=== PATIENT | male | born 1935 | race Caucasian/White ===

== ENCOUNTER 2022-03-15 09:10 | Observation (INO) | payer MEDICARE, SELFPAY ==
[2022-03-15] VITALS (10 sets, daily range): BP systolic 133–144; BP diastolic 53–95; PULSE 60–119; RESP 16–18; TEMP 36.3–37.1; O2SAT 96–99; BMI 26.9; BMI 26.4
--- NOTE | 2022-03-15 09:19 | EKG12_ITS ---
Test Reason : AFIB Blood Pressure : / mmHG Vent. Rate : 144 BPM Atrial Rate : 150 BPM P-R Int : 000 ms QRS Dur : 122 ms QT Int : 328 ms P-R-T Axes : 000 -26 094 degrees QTc Int : 507 ms Atrial fibrillation with premature ventricular or aberrantly conducted complexes Incomplete left bundle branch block Abnormal ECG Confirmed by CHAU CORTEZ, ADIA ([id number]), editorial director NAJMA MARTINEZ ([id number]) on 03/19/2022 10:12:59 AM Referred By: MATT Confirmed By:ADIA RITCHIE MD
--- NOTE | 2022-03-15 09:23 | NURSING ---
NO OLD EKGS
--- NOTE | 2022-03-15 09:27 | EDS_ITS ---
HPI History of Present Illness Chief Complaint: Palpitations Informant: patient Onset/Context/Timing Onset: Today Timing: Continuous Current Severity: Mild Maximum Severity: Mild Worsened By: Nothing Relieved By: Nothing Associated Symptoms: Negative for Nausea, Vomiting, Diaphoresis, Dyspnea, Cough, Fever or Lightheadedness Narrative Narrative: 86-year-old male history of hypertension and prior prostate cancer. Today Laisha had a cataract surgery at [facility]. Preop exam they found he was in A. fib RVR. He has no cardiac history no history of any dysrhythmia. He did not even realize he was in it. He denies any recent chest pain or shortness of breath. They sent him to the emergency department to be evaluated. He has no history of cardiac disease that he is aware of. Prior Similar Symptoms: No Recent Illness/Hospitalization: No CVD Risk Factors: Positive for Hypertension and Hypercholesterolemia; Negative for Diabetes PE Risk Factors: Negative for Recent Travel/Surgery, Recent Immobilization, Prior DVT or PE, Cancer or OCP + Smoking + >/=35 TAD Risk Factors: Negative for Marfan's Syndrome [facility] Medical History BPH (benign prostatic hyperplasia) History of prostate cancer Hypertension Home Medications hydrochlorothiazide 12.5 mg capsule 1 cap PO DAILY 03/15/22 [History Last Taken Unknown] lisinopril 5 mg tablet 1 tab PO DAILY 03/15/22 [History Last Taken Unknown] losartan 25 mg tablet 1 tab PO DAILY 03/15/22 [History Last Taken Unknown] tamsulosin 0.4 mg capsule 1 cap PO QHS 03/15/22 [History Last Taken Unknown] Allergy/AdvReac Type Severity Reaction Status Date / Time No Known Allergies Allergy Verified 03/15/22 09:12 Social History Smoking Status: Never smoker ROS ROS ED ROS Narrative Denies recent illness. Review of Systems ROS Unobtainable: Denies due to encephalopathy Constitutional Constitutional ED: Denies chills Eyes Eyes: Denies none ENT ENT ED: Denies ear pain Cardiovascular Cardiovascular: Reports as per HPI, palpitations and racing heartbeat Respiratory/Chest Respiratory/Chest: Denies cough Gastrointestinal Gastrointestinal: Denies abdominal pain Genitourinary Genitourinary ED: Denies dysuria Musculoskeletal Musculoskeletal: Denies arthralgias Integumentary Denies abscess Neurologic Neurologic: Denies headache(s) Psychiatric Psychiatric: Denies anxiety Endocrine Endocrinology: Denies cold intolerance Hematologic/Lymphatic Hematologic/Lymphatic: Denies easy bleeding Allergic/Immunologic Allergic/Immunologic ED: Denies mouth swelling EXAM Physical Exam Narrative Exam Narrative: 86-year-old male vital signs stable except for his heart rate is between 100- 150. No distress. Pulse ox 99% on room air no signs hypoxia. H EENT exam unremarkable. Neck nontender. No JVD. No lymphadenopathy. Lungs clear to auscultation bilaterally. Heart irregularly irregular rate about 148. No murmur. Chest wall nontender. Abdomen soft nontender. Moving all 4 extremities. Calves are nontender without edema or cords. Neurologically is awake and alert. Const Vital Signs: 03/15/22 09:11 03/15/22 09:19 Temperature 97.5 F L Temperature Source Temporal Pulse Rate 60 Respiratory Rate 16 Blood Pressure 143/95 H Blood Pressure Mean 111 Pulse Ox 99 Oxygen Delivery Method Room Air Room Air Positive well nourished; Negative for obese, cachectic, contractures or unkempt General Appearance ED: Negative for unkempt, cachectic or contractures Nutritional Appearance: Negative for cachectic or obese HEENT Reports moist mucous membranes normocephalic and atraumatic; Negative for trauma or tenderness Eyes PERRL and EOMs intact bilaterally General Eye ED: Negative for pale conjunctiva or scleral icterus Neck no lymphadenopathy, supple and no JVD General: Negative for tenderness Chest Wall inspection of chest normal and palpation of chest normal Resp normal respiratory effort and clear to auscultation bilaterally Effort and Inspection: respiratory distress; Negative for pain with movement Auscultation: Negative for rales, rhonchi or wheezes Cardio Rate: tachycardic Rhythm: abnormal rhythm GI normal to inspection, nondistended, normoactive bowel sounds, soft to palpation, non-tender, non-distended and no masses; Negative for hepatosplenomegaly Back/Spine no CVA tenderness Extremity normal to inspection General Extremety ED: Negative for edema General Extremity: Negative for edema Neuro oriented x3 and CN's II-XII intact bilaterally Sensorium / Orientation: awake, alert, oriented to person, oriented to place and oriented to time; Negative for confused, lethargic or stuporous Motor Exam: strength 5/5 throughout Psych mental status grossly normal Appearance: Negative for unkempt Attitude: No agitated Mood & Affect: Negative for depressed or anxious Skin no rashes or lesions noted and no wounds General Skin Exam: Negative for jaundice Rashes: No rashes noted Trauma: Negative for abrasion MDM MDM MDM Narrative Medical decision making narrative: 86-year-old male new onset A. fib RVR. Treated with IV Cardizem. Cardiac work- up pending. Most likely will need to be admitted. Repeat exam patient's heart rate is between 1920. Is intermittently in sinus rhythm and other times A. fib or flutter and other times during multiple and frequent PVCs. He is doing well. Resting comfortable. Have spoken to the hospitalist on admission. Lab Data Attestation: I reviewed the patient's lab results. Lab results narrative: CBC shows a white count of 6. H&H of 13.8 and 42. Chemistry is unremarkable except at 6. Normal BUN and creatinine. Troponin 65. TSH normal at 2.7. Labs: Laboratory Results - last 24 hr 03/15/22 03/15/22 09:30 09:30 WBC 6.4 RBC 4.98 Hgb 13.8 Hct 42.6 MCV 85.5 MCH 27.7 MCHC 32.4 RDW Std Deviation 39.2 RDW Coeff of Dc 12.7 Plt Count 283 MPV 9.9 Immature Gran % (Auto) 0.300 Neut % (Auto) 60.7 Lymph % (Auto) 24.2 [place] % (Auto) 11.4 H Eos % (Auto) 2.5 Baso % (Auto) 0.9 Absolute Neuts (auto) 3.9 Absolute Lymphs (auto) 1.55 Nucleated RBC % 0 Sodium 138 Potassium 3.7 Chloride 103 Carbon Dioxide 29.0 Anion Gap 6 BUN 16 Creatinine 0.87 Estim Creat Clear Calc 59.09 Est GFR (MDRD) Af Amer 107 Est GFR (MDRD) Non-Af 89 BUN/Creatinine Ratio 18.4 Glucose 109 H Calcium 9.5 Troponin I High Sens 65 TSH 2.76 Radiography Chest X-Ray - ED: 1 View, Read by ED Physician, Heart, Lungs, Mediastinum, Bony Structures, No Acute Disease and Chronic Changes Diagnostic Testing: Chest x-ray, portable, single view interpreted by myself shows no acute abnormality. Normal cardiac silhouette mediastinum. No congestive heart failure. No effusions. Rhythm Strip Rhythm Strip: A-fib Rate: 144 Ectopy: PVC(s) EKG Initial EKG: Attestation: I personally reviewed and interpreted this EKG as follows: Interpretation: No Acute Injury Pattern and Atrial Fibrillation Comments: A. fib RVR rate of 144. PVCs. Discharge Plan Dx/Rx/DC Orders Clinical Impression: Atrial fibrillation with RVR, History of hypertension Disposition Disposition: Acute Care Hospital [facility]
[2022-03-15] MEDS: Aspirin 81 MG TAB.CHEW 324 MG PO (09:30)
[2022-03-15] MEDS: dilTIAZem 25 MG/5 ML Vial 20 MG IV BOLUS (09:31)
[2022-03-15 09:45] LABS: Absolute Lymphocyte Count 1.55 X10^3/uL (0.83-4.51); Absolute Neutrophil Count 3.9 X10^3/uL (2.0-7.7); Basophil# 0.06 X10^3/uL; Basophil% 0.9 % (0-1); Eosinophil# 0.16 X10^3/uL; Eosinophils% 2.5 % (0-5); Hematocrit 42.6 % (40-54); Hemoglobin 13.8 g/dL (13.0-16.5); Lymphocyte # 1.55 X10^3/ul (0.83-4.51); Lymphocyte % 24.2 % (19-41); Mean Corp Hgb Conc 32.4 g/dL (32-36); Mean Corpuscular Hgb 27.7 pg (27.0-32.0); Mean Corpuscular Volume 85.5 fL (80-94); Mean Platelet Vol. 9.9 fl (6.2-12.0); Monocyte# 0.73 X10^3/uL; Monocyte% 11.4 % (0-10); NRBC Flagged by Analyzer 0 % (0-5); Neutrophil # 3.88 X10^3/uL (2.7-7.7); Neutrophil % 60.7 % (47-70); Platelet Count 283 K/mm3 (150-450); RBC Distribution Width CV 12.7 % (11.6-14.6); RBC Distribution Width SD 39.2 fl (35.1-43.9); Red Blood Count 4.98 M/mm3 (4.6-6.2); White Blood Count 6.4 K/mm3 (4.4-11.0)
--- NOTE | 2022-03-15 09:52 | RAD_ITS ---
STUDY: X-RAY CHEST REASON FOR EXAM: Male, 86 years old. Chest pain . Palpitations. TECHNIQUE: Single AP portable view of the chest. COMPARISON: None. FINDINGS: EKG electrodes are seen. Elevation of the right hemidiaphragm. Mild degree of increased markings at the right lung base suggestive of atelectasis. There is no demonstrated pleural abnormality. There is borderline cardiomegaly. Normal mediastinum and ochoa. Normal visualized pulmonary arteries. Normal visualized aortic arch and descending thoracic aorta. There are diffuse degenerative changes of the visualized thoracic spine. Normal visualized ribs, clavicles, and shoulders. There is no demonstrated abnormality of the visualized soft tissue structures of the upper abdomen. RAD/Chest 1 View (Portable) IMPRESSION: Elevation of the right hemidiaphragm. Mild degree of increased markings at the right lung base suggestive of atelectasis. Electronically Signed: Jeremiah Todd MD at 10:47 EDT ,
[2022-03-15 10:08] LABS: Anion Gap 6 (5-15); BUN 16 mg/dL (7-18); BUN/Creat Ratio 18.4 RATIO (10-20); Calcium,Total 9.5 mg/dL (8.5-10.1); Chloride 103 mmol/L (98-107); Creatinine, Serum 0.87 mg/dL (0.70-1.30); EST Glomerular Filtration Rate 89 mL/min (>60); Est Glom Filt Rate - Afr Amer 107 mL/min (>60); Estimated Creatinine Clearance 59.09 ml/min; Glucose 109 mg/dL (74-106); Potassium 3.7 mmol/L (3.5-5.1); Sodium Level 138 mmol/L (136-145); Thyroid Stim Hormone (TSH) 2.76 uIU/mL (0.358-3.74); Troponin-I HS 65 pg/mL (3.0-78.0)
--- NOTE | 2022-03-15 10:24 | NURSING ---
DR BILLIE PARSON
--- NOTE | 2022-03-15 10:35 | NURSING ---
PENNY WISE NEW ONSET AFIB RVR
--- NOTE | 2022-03-15 10:53 | ECHOD_ITS ---
Reason For Study: ATRIAL FIB-FLUTTER Procedure This was a 2D Doppler, Color Flow transthoracic echocardiogram. The exam was of adequate technical quality. Exam performed portable in patient room. Left Ventricle Mildly dilated left ventricle. Sigmoid septum. Moderate segmental systolic dysfunction (see wall motion). The estimated ejection fraction is 30 %. Unable to assess diastolic dysfunction. Anterio- Basal: Hypokinetic. Lateral-Basal: Hypokinetic. Posterior-Basal: Akinetic. Infero-Basal: Akinetic. Mid-Anterior : Hypokinetic. Mid-Lateral : Hypokinetic. Mid-Posterior: Akinetic. Mid-Inferior: Akinetic. Mid-inferoseptal : Hypokinetic. Mid-anteroseptal : Hypokinetic. Etters : Hypokinetic. Right Ventricle Normal RV size. Normal systolic function. Atria The left atrium is mildly enlarged. Normal right atrium. No doppler evidence for ASD. Mitral Valve There is mild mitral annular calcification. Mild focal mitral valve calcification of the anterior leaflet. Moderate (2+) mitral valve insufficiency. Tricuspid Valve Normal tricuspid valve. Mild tricuspid valve insufficiency. Right ventricular systolic pressure estimated to be 21 mmHg. Aortic Valve Trisinus/trileaflet aortic valve. Mild focal aortic valve calcification. Mild (1+) aortic valve insufficiency. Pulmonic Valve The pulmonic valve is not well visualized. Trivial pulmonic valve insufficiency. Great Vessels Normal sized aortic root. Pericardium/Pleural No pericardial effusion. MMode/2D Measurements & Calculations LVIDd: 5.5 cm IVSd: 1.5 cm Ao root diam: 3.3 cm LVIDs: 5.0 cm LVPWd: 1.0 cm RVDd: 3.7 cm FS: 8.0 % LAV(MOD-bp): 72.4 ml LVAd ap4: 44.3 cm2 SV(MOD-sp4): 49.3 ml LAV(MOD-bp) Indexed: 38.2 ml/m2 LVLd ap4: 9.2 cm LAV(MOD-sp2): 71.3 ml EDV(MOD-sp4): 174.5 ml LAV(MOD-sp4): 70.3 ml EDV(sp4-el): 181.8 ml LVAs ap4: 36.1 cm2 LVLs ap4: 8.6 cm ESV(MOD-sp4): 125.2 ml ESV(sp4-el): 129.7 ml EF(MOD-sp4): 28.3 % EF(sp4-el): 28.7 % SV(sp4-el): 52.1 ml LA A4 area: 23.2 cm2 LA dimension(2D): 4.5 cm RA A4 area: 15.6 cm2 Doppler Measurements & Calculations MV E max lena: 93.1 cm/sec Ao V2 max: 125.7 cm/sec AI max lena: 383.6 cm/sec Ao max P.4 mmHg AI max P.9 mmHg AI dec slope: 239.6 cm/sec2 AI P1/2t: 468.9 msec LV V1 max: 94.7 cm/sec PA V2 max: 69.7 cm/sec TR max lena: 214.0 cm/sec LV V1 max P.6 mmHg TR max P.3 mmHg ECHO/Echo Complete Interpretation Summary Mildly dilated left ventricle. Moderate segmental systolic dysfunction (see wall motion). The estimated ejection fraction is 30 %. Sigmoid septum. The left atrium is mildly enlarged. There is mild mitral annular calcification. Moderate (2+) mitral valve insufficiency. Mild tricuspid valve insufficiency. Mild focal aortic valve calcification. Mild (1+) aortic valve insufficiency. Trivial pulmonic valve insufficiency. Unable to assess diastolic dysfunction. Ordering Physician: Isidro Coyne Referring Physician: ISIDRO MOREL Performed By: Sima Dyson RDCS
[2022-03-15] MEDS: Metoprolol Tartrate 50 MG Tablet PO (11:56)
[2022-03-15] MEDS: APIXABAN 5 MG TABLET PO ×2 (12:52→21:34)
--- NOTE | 2022-03-15 15:23 | HP.PCM.HOS_ITS ---
Documented by User: Nida Iqbal NP, SUPERVISOR [employer] 03/15/22 15:48 HPI - General General Date of Admission: 03/15/22 Date of Service: 03/15/22 Chief Complaint: Abnormal heart rhythm. HPI Narrative OLIVA PEREIRA, is a 86 M who presents to the emergency room from [facility] due to abnormal heart rhythm/A. fib. Patient was undergoing preop evaluation for cataract surgery. He denies history of A. fib. Denies palpitations. Denies shortness of breath or chest pain. Patient states he is very active and has not had any exertional symptoms. Denies any prior cardiac history. Patient reports a past medical history of hypertension, BPH. States he has never been hospitalized and has been overall healthy his entire life. [facility] Medical History BPH (benign prostatic hyperplasia) History of prostate cancer Hypertension Home Medications aspirin 81 mg chewable tablet 81 mg PO DAILY Anticoagulant 03/15/22 [History Last Taken 03/15/22] hydrochlorothiazide 12.5 mg capsule 1 cap PO DAILY B/P 03/15/22 [History Last Taken 03/15/22] lisinopril 5 mg tablet 1 tab PO DAILY B/P 03/15/22 [History Last Taken 03/15/22] losartan 25 mg tablet 1 tab PO DAILY B/P 03/15/22 [History Last Taken 03/15/22] multivitamin 1 tab PO DAILY Health 03/15/22 [History Last Taken 03/15/22] tamsulosin 0.4 mg capsule 1 cap PO QHS Bladder 03/15/22 [History Last Taken 03/15/22] Allergy/AdvReac Type Severity Reaction Status Date / Time No Known Allergies Allergy Verified 03/15/22 09:12 Family History (Updated 03/15/22 @ 15:41 by Nida Iqbal NP, SUPER[employer]) Father Unknown family medical history Mother Diabetes Surgical History no surgical history no surgical history Social History (Updated 03/15/22 @ 15:41 by Nida Iqbal NP, SUPERVIS[employer]) household members: spouse Smoking Status: Never smoker alcohol intake: never substance use type: does not use ROS Constitutional Constitutional: Denies change in weight, chills, fatigue, fever(s) or weakness Cardiovascular Cardiovascular: Denies chest pain, edema, lightheadedness, palpitations or syncope Respiratory/Chest Respiratory/Chest: Denies cough, dyspnea, productive cough, shortness of breath at rest, shortness of breath with exertion or wheezing Gastrointestinal Gastrointestinal: Denies abdominal pain, constipation, diarrhea, nausea or vomiting Genitourinary Genitourinary: Denies burning urination, difficulty urinating, dysuria, hematuria, urinary frequency, urinary incontinence or urinary urgency Musculoskeletal Musculoskeletal: Denies back pain, joint pain or muscle weakness Integumentary Integumentary: Denies erythema, lesions, rash or wounds Neurologic Neurologic: Denies abnormal speech, confusion, dizziness, focal weakness, numbness, paresthesias, seizure-like activity or syncope Psychiatric Psychiatric: Denies anxiety or depression Hematologic/Lymphatic Hematologic/Lymphatic: Denies anemia, easy bleeding or easy bruising Allergic/Immunologic Allergic/Immunologic: Denies hives or asthma Vital Signs Vital Signs Vital Signs: 03/15/22 09:11 03/15/22 09:19 03/15/22 11:22 Temperature 97.5 F L 97.6 F L Temperature Source Temporal Oral Pulse Rate 60 89 Respiratory Rate 16 18 Blood Pressure 143/95 H 133/80 H Blood Pressure Mean 111 97 Blood Pressure Source Monitor Blood Pressure Position Semi-Fowlers Blood Pressure Location Left Arm Pulse Ox 99 99 Oxygen Delivery Method Room Air Room Air Room Air 03/15/22 11:56 03/15/22 11:33 03/15/22 15:00 Temperature Temperature Source Pulse Rate 89 119 H 85 Respiratory Rate Blood Pressure Blood Pressure Mean Blood Pressure Source Blood Pressure Position Blood Pressure Location Pulse Ox Oxygen Delivery Method Weight Weight: 168 lb 10.458 oz Body Mass Index (BMI) 26.4 Physical Exam Const alert, oriented x3 and no apparent distress Orientation / Consciousness: awake, oriented to person, oriented to place and oriented to time HEENT normocephalic and moist oral mucous membranes Eyes PERRL, EOMs intact bilaterally and conjunctivae normal Neck no lymphadenopathy Resp normal respiratory effort and clear to auscultation bilaterally Cardio no murmurs Cardio Narrative: a.fib, rate improved Peripheral Pulses: pulses 2+ throughout GI normal to inspection, nondistended, normoactive bowel sounds, non-tender and non-distended Extremity normal to inspection Skin no rashes or lesions noted Lesions: no lesions Rashes: no rashes Trauma: no lacerations or abrasions Neuro CN's II-XII intact bilaterally, no focal motor deficits, no sensory deficits noted and deep tendon reflexes 2+ bilaterally Psych mental status grossly normal and affect normal Results Lab / Micro Data Result Diagrams: 03/15/22 09:30 03/15/22 09:30 Labs: Laboratory Results - last 24 hr 03/15/22 09:30: WBC 6.4, RBC 4.98, Hgb 13.8, Hct 42.6, MCV 85.5, MCH 27.7, MCHC 32.4, RDW Std Deviation 39.2, RDW Coeff of Dc 12.7, Plt Count 283, MPV 9.9, Immature Gran % (Auto) 0.300, Neut % (Auto) 60.7, Lymph % (Auto) 24.2, [place] % (Auto) 11.4 H, Eos % (Auto) 2.5, Baso % (Auto) 0.9, Absolute Neuts (auto) 3.9, Absolute Lymphs (auto) 1.55, Nucleated RBC % 0 03/15/22 09:30: Sodium 138, Potassium 3.7, Chloride 103, Carbon Dioxide 29.0, Anion Gap 6, BUN 16, Creatinine 0.87, Estim Creat Clear Calc 59.09, Est GFR (MDRD) Af Amer 107, Est GFR (MDRD) Non-Af 89, BUN/Creatinine Ratio 18.4, Glucose 109 H, Calcium 9.5, Troponin I High Sens 65, TSH 2.76 Rhythm Strip Rhythm Strip: A-fib Rate: 144 Ectopy: PVC(s) Radiology Impression Chest X-Ray 03/15/22 09:52 IMPRESSION: Elevation of the right hemidiaphragm. Mild degree of increased markings at the right lung base suggestive of atelectasis. Electronically Signed: Jeremiah Todd MD at 10:47 EDT , Echocardiogram 03/15/22 10:53 Interpretation Summary Mildly dilated left ventricle. Moderate segmental systolic dysfunction (see wall motion). The estimated ejection fraction is 30 %. Sigmoid septum. The left atrium is mildly enlarged. There is mild mitral annular calcification. Moderate (2+) mitral valve insufficiency. Mild tricuspid valve insufficiency. Mild focal aortic valve calcification. Mild (1+) aortic valve insufficiency. Trivial pulmonic valve insufficiency. Unable to assess diastolic dysfunction. Ordering Physician: Isidro Coyne Referring Physician: ISIDRO MOREL Performed By: Sima Dyson RDCS Assessment & Plan Assessment/Plan (1) Atrial fibrillation with RVR: PLAN: Plan 1. New onset atrial fibrillation-patient received Cardizem bolus in the ED. Rate improved. Initiated on oral metoprolol and Eliquis. Echocardiogram demonstrates an EF of 30%, moderate mitral valve insufficiency, mild aortic valve insufficiency. Cardiology consulted. TSH normal. Check mag. Patient on VERONIQUE/ARB at baseline. Unclear why he is on both? Plan for stress test in a.m. 2. Hypertension-continue losartan, HCTZ. DC lisinopril 3. BPH-continue Flomax. DVT prophylaxis-Eliquis This patient was seen by SARAH Edwards under the supervision of Dr. Coyne. Time spent examining patient, reviewing data and subsequent management of care: 23 minutes Documented by User: Dr. Isidro Coyne DO 03/15/22 19:46 HPI - General General Date of Admission: 03/15/22 [facility] Medical History BPH (benign prostatic hyperplasia) History of prostate cancer Hypertension Home Medications aspirin 81 mg chewable tablet 81 mg PO DAILY Anticoagulant 03/15/22 [History Last Taken 03/15/22] hydrochlorothiazide 12.5 mg capsule 1 cap PO DAILY B/P 03/15/22 [History Last Taken 03/15/22] lisinopril 5 mg tablet 1 tab PO DAILY B/P 03/15/22 [History Last Taken 03/15/22] losartan 25 mg tablet 1 tab PO DAILY B/P 03/15/22 [History Last Taken 03/15/22] multivitamin 1 tab PO DAILY Health 03/15/22 [History Last Taken 03/15/22] tamsulosin 0.4 mg capsule 1 cap PO QHS Bladder 03/15/22 [History Last Taken 03/15/22] Allergy/AdvReac Type Severity Reaction Status Date / Time No Known Allergies Allergy Verified 03/15/22 09:12 Family History (Updated 03/15/22 @ 15:41 by Nida Iqbal NP, SUPERVIS[employer]) Father Unknown family medical history Mother Diabetes Surgical History no surgical history Social History (Updated 03/15/22 @ 15:41 by Nida Iqbal NP, SUPERVIS[employer]C) household members: spouse Smoking Status: Never smoker alcohol intake: never substance use type: does not use Results Lab / Micro Data Result Diagrams: 03/15/22 09:30 03/15/22 09:30 Assessment & Plan Assessment/Plan (1) Atrial fibrillation with RVR: Charges/Coding Addendum Addendum: Patient was seen and examined today independently of Nida Iqbal, he came to the emergency room today after he was sent for evaluation of an abnormal heart rhythm that was detected when the patient was about to undergo cataract surgery this morning as an outpatient. Patient was noted to be in atrial fibrillation with rapid ventricular response approximately 150. Patient was asymptomatic. On examination he appeared in good health and spirits. Vital signs as documented. Skin warm and dry and without overt rashes. Neck without JVD, neck was supple, trachea midline, thyroid was normal. Lungs clear bilaterally, normal air movement was noted. Heart exam notable for regular rhythm, normal sounds and absence of murmurs, rubs or gallops. Abdomen unremarkable and without evidence of organomegaly, masses, or abdominal aortic enlargement. Bowel sounds are present, abdomen is not distended. Extremities nonedematous, no cyanosis was noted, no clubbing was noted. Neuro: Cranial nerves II through XII are grossly intact, no focal motor deficits were noted, sensation to light touch and pinprick intact, motor exam 5/5 throughout. Psych: Patient is alert and oriented x3, he does not appear anxious or depressed, he does not appear agitated. EKG showed atrial fibrillation with a rapid ventricular response, no evidence of ischemic changes were noted. Chest x-ray showed a mild degree of increased markings at the right lung base suggestive of atelectasis along with elevation of the right hemidiaphragm. Patient's labs were unremarkable. Impression: #1 new onset atrial fibrillation with rapid ventricular response- patient will be placed in observation status on PCU, he was given IV Cardizem in the emergency room, he will be placed on oral beta-blockers, echocardiogram will be obtained #2 essential hypertension-patient is on both an VERONIQUE inhibitor and an ARB, I will stop his VERONIQUE inhibitor and maintain him on losartan, I will hold his hydrochlorothiazide for now due to the addition of the [id number] might cause his pressure to decline. I have reviewed Nida Iqbal's history and physical including her medical assessment and plan of care with the above additions endorse it. Total clinical time spent by myself addressing the patient's medical issues, reviewing the data, and collaborating with the patient's care team: 47 minutes Visit Charges OBSV E&M: [id number] Initial observation care L3
[2022-03-15 15:49] LABS: Troponin-I HS 74 pg/mL (3.0-78.0)
[2022-03-15 16:14] LABS: Magnesium 2.1 mg/dL (1.6-2.6)
[2022-03-15] MEDS: Tamsulosin HCl 0.4 MG Capsule PO (21:34)
[2022-03-15] MEDS: Metoprolol Tartrate 50 MG Tablet 75 MG PO (21:34)
[2022-03-16 03:00] VITALS: PULSE 58
[2022-03-16 03:30] VITALS: BP 143/86; PULSE 58; RESP 18; TEMP 36.9; O2SAT 99
--- NOTE | 2022-03-16 05:36 | EKG12_ITS ---
Test Reason : AM EKG Blood Pressure : / mmHG Vent. Rate : 086 BPM Atrial Rate : 208 BPM P-R Int : 000 ms QRS Dur : 134 ms QT Int : 426 ms P-R-T Axes : 045 002 090 degrees QTc Int : 509 ms Atrial flutter with variable A-V block Non-specific intra-ventricular conduction block Abnormal ECG Confirmed by CHAU CORTEZ, ADIA ([id number]), visual effects editor NAJMA MARTINEZ ([id number]) on 03/20/2022 8:27:58 AM Referred By: Confirmed By:ADIA RITCHIE MD
[2022-03-16] MEDS: Aspirin E.C. 81 MG Tablet PO (05:45)
[2022-03-16] MEDS: Losartan Potassium 50 MG Tablet PO (05:45)
[2022-03-16 07:01] VITALS: PULSE 85
[2022-03-16 10:23] VITALS: BP 127/75; PULSE 84; RESP 20; TEMP 37; O2SAT 98
--- NOTE | 2022-03-16 10:25 | STRESSREP_ITS ---
Stress Test Report Date: 03-16-2022 Procedure: Pharmacologic stress nuclear imaging study Indications: Atrial fibrillation/flutter; cardiomyopathy Consent: Per the patient Procedure: The patient underwent pharmacologic (Regadenoson 0.4mg ) evaluation with a peak heart rate of 94 beats per minute (69%predicted maximal heart rate) and a peak blood pressure of 128/70 mmHg. The baseline ECG demonstrated atrial flutter. The peak pharmacologic ECG demonstrated no obvious ECG changes. There was an occasional PVC in recovery. There was no complaint of chest discomfort during pharmacologic infusion or recovery. The examination was discontinued secondary to completion of protocol. Impression: 1. Pharmacologic (Regadenoson) evaluation 2. Peak pharmacologic ECG with continued atrial flutter with no obvious ECG changes. 3. There was an occasional PVC during recovery. 4. Nuclear images pending Myocardial perfusion imaging study: Technique: The patient was injected with 12.0 millicuries of technetium 99m Cardiolite and subsequently rest SPECT Cardiolite nuclear imaging was obtained in the horizontal long, vertical long, and short axis views. The patient underwent pharmacologic (Regadenoson) evaluation with a peak heart rate of 94 beats per minute (69% percent predicted maximal heart rate) and a peak blood pressure of 128/70 mmHg. The patient was injected with 35.8 millicuries of technetium 99m Cardiolite and subsequently stress SPECT Cardiolite nuclear imaging was obtained in the horizontal long, vertical long, and short axis views. A gated Cardiolite study at peak stress was obtained. Interpretation: Rest and stress SPECT Cardiolite nuclear imaging status post realignment, normalization, and attenuation correction demonstrate the appearance of diminished absence of myocardial perfusion/tracer uptake in portions of the mid to distal inferior/inferoapical segments without significant change between rest and stress. There is diminished end-systolic thickening and brightening in the aforementioned area. The gated Cardiolite study demonstrates diminished myocardial thickening and inward wall motion in the aforementioned area. The reported LVEF is 36%. Impression: 1. Rest and stress SPECT current nuclear imaging demonstrate myocardial perfusion changes appearing compatible with an area of previous myocardial injur y/infarction involving portions of the mid to distal inferior and inferoapical segments with no myocardial perfusion changes considered diagnostic for associated stress-induced myocardial ischemia. 2. The gated Cardiolite study reports an LVEF of 36%. This note was generated with Snapchat software. It may contain incorrect words, spelling, and punctuation that were not noted in checking the note before signing.
[2022-03-16 10:29] VITALS: BP 127/75; PULSE 84
[2022-03-16] MEDS: Metoprolol Tartrate 50 MG Tablet 75 MG PO (10:29)
--- NOTE | 2022-03-16 10:32 | DCINST_ITS ---
Discharge Instructions Diet Discharge Diet: Low fat / Low cholesterol Activity Discharge Activity: Return to Normal Activity Dressing / Incision Call your doctor if you observe: Shortness of breath, Dizziness, Chest pain and Increased palpitations (irregular heartbeat) Follow Up Care Test Results: Test results from this visit will be discussed in further detail at your follow- up appointment, if applicable. Discharge Plan Admission Admit Date/Time: 03/15/22 10:39 Primary Reason for Your Visit: New onset a.fib Attending Provider: Oral Coyne Primary Care Provider: Oral Hodges Discharge Orders/Prescriptions Prescriptions: New losartan 50 mg Tablet 50 mg PO DAILY 30 Days Qty: 30 0RF metoprolol tartrate 50 mg Tablet 75 mg PO BID 30 Days Qty: 90 0RF Eliquis 5 mg Tablet 5 mg PO BID 30 Days Qty: 60 0RF atorvastatin 20 mg tablet 20 mg PO QHS Qty: 30 0RF Continued tamsulosin 0.4 mg capsule 1 cap PO QHS hydrochlorothiazide 12.5 mg capsule 1 cap PO DAILY multivitamin Tablet 1 tab PO DAILY aspirin 81 mg Tablet,Chewable 81 mg PO DAILY Discontinued losartan 25 mg tablet 1 tab PO DAILY lisinopril 5 mg tablet 1 tab PO DAILY Referrals / Follow Up: Oral Hodges MD [Primary Care Provider] - In 1 Week Anibal Cruz MD [STAFF PHYSICIAN] - Within 1 Month Disposition Disposition (needs filled in before D/C Order can be placed): Home, Self Care
--- NOTE | 2022-03-16 11:20 | CASEMGMT ---
Pt to be sent home on Eliquis at discharge and med e-scribed to [facility] previously. Call to [employer] and per tech, pt's co-pay is $47. Tech provided with info for Eliquis 30 day free trial card at this time and applied. Pt updated on all, voices understanding. Pt voices no further questions/concerns/needs. SSttori BISHOP CM
--- NOTE | 2022-03-16 11:28 | CON.PCM.CA_ITS ---
Assessment & Plan Assessment/Plan (1) Atrial fibrillation and flutter: PLAN: The patient has been found to have atrial fibrillation/flutter. This may be related to a combination of age and hypertension as well as associated cardiovascular disease as he has not been found to have other obvious etiologies thus far to explain it. He appears to be symptomatically and hemodynamically stable at this time. He is continuing rate control therapy. He has been placed on anticoagulant therapy. He is already undergone noninvasive cardiovascular evaluation as noted. He will be asked to have future outpatient cardiovascular follow-up with consideration to an attempt at regaining sinus rhythm with synchronized biphasic DC cardioversion. (2) Cardiomyopathy: PLAN: He has been found to have evidence of left ventricular wall motion abnormalities and diminished LV systolic function/LVEF compatible with an underlying cardiomyopathy. Based upon his echocardiographic images and pharmacologic stress nuclear imaging findings there be concerns that this may be ischemic mediated. His noninvasive studies did not suggest ongoing stress-induced myocardial ischemia. At the present time he will continue combined medical management and outpatient follow-up. Over time he will be considered for follow-up transthoracic echocardiogram. If his LV systolic function/LVEF does not improve then consideration will be given as to whether or not he should be considered for electrophysiology evaluation/care with primary prevention ICD. (3) Mitral valve disorder: PLAN: He does have mitral valve disorder with mitral valve regurgitation. It is unclear whether this is related to his history of rheumatic fever versus related to his atrial dysrhythmia versus related to his left ventricular regiona l wall motion abnormalities and diminished LV systolic function. At the moment he appears without acute symptoms. He will need to be followed by examination and future echocardiographic studies. (4) Rheumatic fever: PLAN: He states he has a history of rheumatic fever. He does not recall the details. Again this does increase his risk of cardiovascular related issues/valvular heart disease. He will continue evaluation care based upon his ongoing conditions. (5) History of hypertension: PLAN: He should continue medical management. Addt'l Comments The patient's case was discussed and reviewed with the patient and Dr. Coyne. The present time he will continue cardiovascular risk factor evaluation/therapy and cardiovascular medical therapy for his diagnosed conditions. He will continue with future outpatient cardiovascular follow-up. This note was generated using a voice recognition system and there may be incorrect words, spelling or punctuation that were not noted when reviewing the office note prior to saving. HPI Consult Data Date of Consult: 03/16/22 HPI Narrative HPI Narrative: OLIVA PEREIRA, is a 86-year-old white male who presents for evaluation of atrial fibrillation/flutter, abnormal transthoracic echocardiogram, and abnormal pharmacologic stress nuclear imaging study. The patient states to the best of his knowledge she has had no history of underlying cardiovascular disease. He does state that he and his brother were diagnosed with rheumatic fever when they were young. He does not recall ever undergoing cardiovascular testing in the past. 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 He was found to be in underlying irregular cardiac rhythm. He was referred to the emergency department for further evaluation. There he was diagnosed with atrial fibrillation with RVR. He was brought into the hospital for additional evaluation and care. 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 He states he blamed the diaphoresis on a hot humid day. He does not recall having any form of chest discomfort or difficulty breathing. He does not recall any palpitations nor does he recall any episodes of near syncope or syncope. He states the next day he felt back to his normal self and return to his usual activities. Since being in the hospital he has had cardiac enzymes performed which were negative. His ECG demonstrated atrial fibrillation with occasional PVCs with nonspecific ST/T wave changes. His chest x-ray is as noted below. He has undergone evaluation with a transthoracic echocardiogram and subsequently a pharmacologic stress nuclear imaging study. They have demonstrated what appears to be diminished LV wall motion and systolic function and diminished LVEF. (Please see results below). His pharmacologic stress nuclear imaging study did not appear to demonstrate additional changes suspicious for stress-induced myocardial ischemia. He has been treated medically which has included the addition of a beta-rylie. His cardiac rate slowed. His cardiac rhythm appeared to demonstrate findings of atrial fibrillation/flutter. He has been up and about and ambulating. He states overall he feels good as if there is nothing wrong. He knows he still needs to complete his cataract surgery. He also states that he has a left facial lesion which has been biopsied by dermatology. He is waiting for the biopsy results. [facility] Medical History BPH (benign prostatic hyperplasia) History of prostate cancer Hypertension Home Medications aspirin 81 mg chewable tablet 81 mg PO DAILY Anticoagulant 03/15/22 [History Last Taken 03/15/22] hydrochlorothiazide 12.5 mg capsule 1 cap PO DAILY B/P 03/15/22 [History Last Taken 03/15/22] multivitamin 1 tab PO DAILY Health 03/15/22 [History Last Taken 03/15/22] tamsulosin 0.4 mg capsule 1 cap PO QHS Bladder 03/15/22 [History Last Taken 03/15/22] apixaban 5 mg tablet (Eliquis) 5 mg PO BID 30 days #60 tabs 03/16/22 [Rx Last Ta silvana Unknown] atorvastatin 20 mg tablet 20 mg PO QHS #30 tabs 03/16/22 [Rx Last Taken Unknown] losartan 50 mg tablet 50 mg PO DAILY 30 days #30 tabs 03/16/22 [Rx Last Taken Unknown] metoprolol tartrate 50 mg tablet 75 mg PO BID 30 days #90 tabs 03/16/22 [Rx Last Taken Unknown] Allergy/AdvReac Type Severity Reaction Status Date / Time No Known Allergies Allergy Verified 03/15/22 09:12 Family History (Updated 03/15/22 @ 15:41 by Nida Iqbal NP, [employer]) Father Unknown family medical history Mother Diabetes Surgical History no surgical history Social History (Updated 03/15/22 @ 15:41 by Nida Iqbal NP, [employer]) household members: spouse Smoking Status: Never smoker alcohol intake: never substance use type: does not use ROS Constitutional Constitutional: Reports as per HPI Eyes Eyes: Reports as per HPI ENT HEENT: Reports as per HPI Cardiovascular Cardiovascular: Reports as per HPI Respiratory/Chest Respiratory/Chest: Reports as per HPI Gastrointestinal Gastrointestinal: Reports as per HPI Genitourinary Genitourinary: Reports as per HPI Musculoskeletal Musculoskeletal: Reports as per HPI Integumentary Integumentary: Reports as per HPI Neurologic Neurologic: Reports as per HPI Physical Exam Const alert, oriented x3, no apparent distress and healthy appearing HEENT normocephalic, head/scalp atraumatic and hearing grossly normal bilaterally Eyes PERRL, EOMs intact bilaterally, conjunctivae normal and no scleral icterus Neck full ROM, supple and no JVD Carotids: normal carotid upstroke Resp normal respiratory effort and clear to auscultation bilaterally Cardio Rhythm: abnormal rhythm irregularly irregular Heart Sounds: S1 normal, S2 normal and murmur systolic II/ soft holo apex and axilla GI normal to inspection, nondistended, normoactive bowel sounds Extremity no pedal edema Skin Skin Narrative: Left facial skin lesion Psych mental status grossly normal Risk Stratification Risk Stratification Applicable: No Procedure Criteria Type of Procedure Procedure Type: Elective Elective Risks - COVID COVID Risk Discussion: The surgeon/proceduralist and patient have discussed in detail the risk of exposure to and/or potential harm posed by the COVID-19 virus with having a surgery/procedure at this time versus the risk of delaying the surgery/ procedure. It is not possible to know either the risk of delaying the surgery or procedure or chance of getting an infection with perfect accuracy, but a joint decision was made between the patient and the surgeon/proceduralist to proceed at this time with the scheduled surgery/procedure as indicated on the consent form. Objective Data Vital Signs: Vital Signs Temp Pulse Resp BP Pulse Ox O2 Del Method 98.6 F 84 20 H 127/75 H 98 Room Air 03/16/22 10:23 03/16/22 10:29 03/16/22 10:23 03/16/22 10:29 03/16/22 10:23 03/16/22 10:40 Oxygen Delivery Method Room Air Weight: 168 lb 10.458 oz Body Mass Index (BMI) 26.4 Intake & Output: Intake and Output for Last 24 Hours 03/14/22 03/15/22 03/16/22 23:59 23:59 23:59 Intake Total 750 / 750 Balance 750 / 750 Lab / Micro Data Result Diagrams: 03/15/22 09:30 03/15/22 09:30 Labs: Laboratory Results - last 24 hr 03/15/22 15:20: Troponin I High Sens 74 03/15/22 15:20: Magnesium 2.1 Rhythm Strip Rate: 144 Ectopy: PVC(s) Cardiology Labs/Tests 03/15/22 15:20: Magnesium 2.1 Rhythm: Atrial fibrillation/flutter EKG: As noted above ECHO: Echocardiogram 03/15/22 10:53 Interpretation Summary Mildly dilated left ventricle. Moderate segmental systolic dysfunction (see wall motion). The estimated ejection fraction is 30 %. Sigmoid septum. The left atrium is mildly enlarged. There is mild mitral annular calcification. Moderate (2+) mitral valve insufficiency. Mild tricuspid valve insufficiency. Mild focal aortic valve calcification. Mild (1+) aortic valve insufficiency. Trivial pulmonic valve insufficiency. Unable to assess diastolic dysfunction. Stress Test: Stress Test Report Date: 03-16-2022 Procedure: Pharmacologic stress nuclear imaging study? Indications: Atrial fibrillation/flutter; cardiomyopathy Consent: Per the patient Procedure: The patient underwent pharmacologic (Regadenoson 0.4mg ) evaluation with a peak heart rate of 94 beats per minute (69%predicted maximal heart rate) and a peak blood pressure of 128/70 mmHg. The baseline ECG demonstrated atrial flutter.? The peak pharmacologic ECG demonstrated no obvious ECG changes. There was an occasional PVC in recovery. There was no complaint of chest discomfort during pharmacologic infusion or recovery. The examination was discontinued secondary to completion of protocol. Impression: 1.? Pharmacologic (Regadenoson) evaluation 2.? Peak pharmacologic ECG with continued atrial flutter with no obvious ECG changes. 3.? There was an occasional PVC during recovery. 4.? Nuclear images pending Myocardial perfusion imaging study: Technique: The patient was injected with 12.0 millicuries of technetium 99m Cardiolite and subsequently rest SPECT Cardiolite nuclear imaging was obtained in the horizontal long, vertical long, and short axis views. The patient underwent pharmacologic (Regadenoson) evaluation with a peak heart rate of 94 beats per minute (69% percent predicted maximal heart rate) and a peak blood pressure of 128/70 mmHg. The patient was injected with 35.8 millicuries of technetium 99m Cardiolite and subsequently stress SPECT Cardiolite nuclear imaging was obtained in the horizontal long, vertical long, and short axis views.? A gated Cardiolite study at peak stress was obtained. Interpretation: Rest and stress SPECT Cardiolite nuclear imaging status post realignment, normalization, and attenuation correction demonstrate the appearance of dim inished absence of myocardial perfusion/tracer uptake in portions of the mid to distal inferior/inferoapical segments without significant change between rest and stress.? There is diminished end-systolic thickening and brightening in the aforementioned area.? The gated Cardiolite study demonstrates diminished myocardial thickening and inward wall motion in the aforementioned area.? The reported LVEF is 36%. Impression: 1.? Rest and stress SPECT current nuclear imaging demonstrate myocardial pe rfusion changes appearing compatible with an area of previous myocardial injury/infarction involving portions of the mid to distal inferior and inferoapical segments with no myocardial perfusion changes considered diagnostic for associated stress-induced myocardial ischemia. 2.? The gated Cardiolite study reports an LVEF of 36%. Radiography Diagnostic Testing: Radiology Impression Echocardiogram 03/15/22 10:53 Interpretation Summary Mildly dilated left ventricle. Moderate segmental systolic dysfunction (see wall motion). The estimated ejection fraction is 30 %. Sigmoid septum. The left atrium is mildly enlarged. There is mild mitral annular calcification. Moderate (2+) mitral valve insufficiency. Mild tricuspid valve insufficiency. Mild focal aortic valve calcification. Mild (1+) aortic valve insufficiency. Trivial pulmonic valve insufficiency. Unable to assess diastolic dysfunction. Ordering Physician: Isidro Coyne Referring Physician: ISIDRO MOREL Performed By: Sima Dyson RDCS Chest x-ray: 03-15-2022 FINDINGS: EKG electrodes are seen. Elevation of the right hemidiaphragm.? Mild degree of increased markings at the right lung base suggestive of atelectasis.? There is no demonstrated pleural abnormality. There is borderline cardiomegaly. ? Normal mediastinum and ochoa.? Normal visualized pulmonary arteries.? Normal visualized aortic arch and descending thoracic aorta. There are diffuse degenerative changes of the visualized thoracic spine. Normal visualized ribs, clavicles, and shoulders. There is no demonstrated abnormality of the visualized soft tissue structures of the upper abdomen. RAD/Chest 1 View (Portable) IMPRESSION: Elevation of the right hemidiaphragm. Mild degree of increased markings at the right lung base suggestive of atelectasis. ? Electronically Signed: Jeremiah Todd MD at 10:47 EDT
--- NOTE | 2022-03-16 11:32 | DS.PCM_ITS ---
Documented by User: Nida Iqbal NP, TEST AND TURN UP TECHNICIAN-C 03/16/22 11:38 Providers Date of Admission: 03/15/22 Date of Discharge: 03/16/22 Primary Care Physician: Dr. Isidro Morel MD Reason For Visit: NEW ONSET A-FIB RVR Diagnosis Discharge Diagnosis (1) Atrial fibrillation with RVR: Status: Acute Code(s): I48.91 - Unspecified atrial fibrillation Medications at Discharge Home Medications aspirin 81 mg chewable tablet 81 mg PO DAILY Anticoagulant 03/15/22 hydrochlorothiazide 12.5 mg capsule 1 cap PO DAILY B/P 03/15/22 multivitamin 1 tab PO DAILY Health 03/15/22 tamsulosin 0.4 mg capsule 1 cap PO QHS Bladder 03/15/22 apixaban 5 mg tablet (Eliquis) 5 mg PO BID 30 days #60 tabs 03/16/22 atorvastatin 20 mg tablet 20 mg PO QHS #30 tabs 03/16/22 losartan 50 mg tablet 50 mg PO DAILY 30 days #30 tabs 03/16/22 metoprolol tartrate 50 mg tablet 75 mg PO BID 30 days #90 tabs 03/16/22 Hospital Course Operations None Procedures 2-D Echocardiogram and Stress test Summary of Care Provided Hospital Course: Patient is an 86-year-old male admitted 03/15/2022 due to abnormal preop EKG. 1.? New onset atrial fibrillation-patient received Cardizem bolus in the ED.? Rate improved.? Initiated on oral metoprolol and Eliquis.? Echocardiogram demonstrates an EF of 30%, moderate mitral valve insufficiency, mild aortic valve insufficiency.? Cardiology consulted.? TSH, mag normal.? Patient underwent stress test which demonstrated previous myocardial injury, no stress-induced ischemia. Continue metoprolol and Eliquis at discharge with outpatient follow- up with cardiology in 1 month for consideration of cardioversion. Follow-up with PCP in 1 week. 2. Ischemic cardiomyopathy-reduced EF as noted above. Stress test demonstrated previous myocardial injury involving portions of the mid to distal inferior and inferior apical segments. No stress-induced ischemia. Plan for medical management including aspirin, statin, metoprolol, losartan. Outpatient follow- up with cardiology. 3. Hypertension-continue losartan, HCTZ.? DC lisinopril 4. BPH-continue Flomax. Physical Exam Const alert, oriented x3 and no apparent distress Orientation / Consciousness: awake, oriented to person, oriented to place and oriented to time HEENT normocephalic and moist oral mucous membranes Eyes PERRL, EOMs intact bilaterally and conjunctivae normal Neck no lymphadenopathy Resp normal respiratory effort and clear to auscultation bilaterally Cardio no murmurs Cardio Narrative: a.fib, rate controlled Peripheral Pulses: pulses 2+ throughout GI normal to inspection, nondistended, normoactive bowel sounds, non-tender and non-distended Extremity normal to inspection Skin no rashes or lesions noted Lesions: no lesions Rashes: no rashes Trauma: no lacerations or abrasions Neuro CN's II-XII intact bilaterally, no focal motor deficits, no sensory deficits noted and deep tendon reflexes 2+ bilaterally Psych mental status grossly normal and affect normal Patient seen and examined prior to discharge. Physical assessment as noted above. Patient is stable for discharge with follow up recommendations as noted above. This patient was seen by SARAH Edwards under the supervision of Dr. Coyne. Time spent examining patient, reviewing data and subsequent management of care: 20 minutes Weight / BMI Weight Weight: 168 lb 10.458 oz Body Mass Index (BMI) 26.4 ABG / Lab / Microbiology Data Result Diagrams: 03/15/22 09:30 03/15/22 09:30 Laboratory: Laboratory Results - last 24 hr 03/15/22 15:20: Troponin I High Sens 74 03/15/22 15:20: Magnesium 2.1 Radiography Diagnostic Testing: Radiology Impression Echocardiogram 03/15/22 10:53 Interpretation Summary Mildly dilated left ventricle. Moderate segmental systolic dysfunction (see wall motion). The estimated ejection fraction is 30 %. Sigmoid septum. The left atrium is mildly enlarged. There is mild mitral annular calcification. Moderate (2+) mitral valve insufficiency. Mild tricuspid valve insufficiency. Mild focal aortic valve calcification. Mild (1+) aortic valve insufficiency. Trivial pulmonic valve insufficiency. Unable to assess diastolic dysfunction. __ Ordering Physician: Isidro Coyne Referring Physician: ISIDRO MOREL Performed By: Sima Dyson RDCS D/C Instructions Discharge Diet: Low fat / Low cholesterol Call your doctor if you observe: Shortness of breath, Dizziness, Chest pain and Increased palpitations (irregular heartbeat) Meaningful Use Info Meaningful Use Diagnoses (Choose all that apply): None applicable Discharge Plan Admission Admit Date/Time: 03/15/22 10:39 Primary Reason for Your Visit: New onset a.fib Attending Provider: Isidro Coyne Primary Care Provider: Isidro Morel Discharge Orders/Prescriptions Prescriptions: New losartan 50 mg Tablet 50 mg PO DAILY 30 Days Qty: 30 0RF metoprolol tartrate 50 mg Tablet 75 mg PO BID 30 Days Qty: 90 0RF Eliquis 5 mg Tablet 5 mg PO BID 30 Days Qty: 60 0RF atorvastatin 20 mg tablet 20 mg PO QHS Qty: 30 0RF Continued tamsulosin 0.4 mg capsule 1 cap PO QHS hydrochlorothiazide 12.5 mg capsule 1 cap PO DAILY multivitamin Tablet 1 tab PO DAILY aspirin 81 mg Tablet,Chewable 81 mg PO DAILY Discontinued losartan 25 mg tablet 1 tab PO DAILY lisinopril 5 mg tablet 1 tab PO DAILY Referrals / Follow Up: Isidro Morel MD [Primary Care Provider] - In 1 Week Anibal Cruz MD [STAFF PHYSICIAN] - Within 1 Month Disposition Disposition (needs filled in before D/C Order can be placed): Home, Self Care Documented by User: Dr. Isidro Coyne DO 03/16/22 17:53 Providers Date of Admission: 03/15/22 Reason For Visit: NEW ONSET A-FIB RVR Diagnosis Discharge Diagnosis (1) Atrial fibrillation with RVR: Status: Acute Code(s): I48.91 - Unspecified atrial fibrillation Medications at Discharge Home Medications aspirin 81 mg chewable tablet 81 mg PO DAILY Anticoagulant 03/15/22 hydrochlorothiazide 12.5 mg capsule 1 cap PO DAILY B/P 03/15/22 multivitamin 1 tab PO DAILY Health 03/15/22 tamsulosin 0.4 mg capsule 1 cap PO QHS Bladder 03/15/22 apixaban 5 mg tablet (Eliquis) 5 mg PO BID 30 days #60 tabs 03/16/22 atorvastatin 20 mg tablet 20 mg PO QHS #30 tabs 03/16/22 losartan 50 mg tablet 50 mg PO DAILY 30 days #30 tabs 03/16/22 metoprolol tartrate 50 mg tablet 75 mg PO BID 30 days #90 tabs 03/16/22 ABG / Lab / Microbiology Data Result Diagrams: 03/15/22 09:30 03/15/22 09:30 Discharge Plan Admission Admit Date/Time: 03/15/22 10:39 Primary Reason for Your Visit: New onset a.fib Attending Provider: Isidro Coyne Primary Care Provider: Isidro Morel Discharge Orders/Prescriptions Prescriptions: New losartan 50 mg Tablet 50 mg PO DAILY 30 Days Qty: 30 0RF metoprolol tartrate 50 mg Tablet 75 mg PO BID 30 Days Qty: 90 0RF Eliquis 5 mg Tablet 5 mg PO BID 30 Days Qty: 60 0RF atorvastatin 20 mg tablet 20 mg PO QHS Qty: 30 0RF Continued tamsulosin 0.4 mg capsule 1 cap PO QHS hydrochlorothiazide 12.5 mg capsule 1 cap PO DAILY multivitamin Tablet 1 tab PO DAILY aspirin 81 mg Tablet,Chewable 81 mg PO DAILY Discontinued losartan 25 mg tablet 1 tab PO DAILY lisinopril 5 mg tablet 1 tab PO DAILY Referrals / Follow Up: Isidro Morel MD [Primary Care Provider] - In 1 Week Anibal Cruz MD [STAFF PHYSICIAN] - Within 1 Month Disposition Disposition (needs filled in before D/C Order can be placed): Home, Self Care Charges/Coding Addendum Addendum: Patient was seen and examined today independently of Nida Iqbal, patient underwent a stress test today which was negative for reversible ischemia, 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 Patient was seen by cardiology today in consultation for evaluation and follow-up care. Patient remains in atrial for but this time-his rate seems controlled on his present medications. On examination he appeared in good health and spirits. Vital signs as documente d. Skin warm and dry and without overt rashes. Neck without JVD, neck was supple, trachea midline, thyroid was normal. Lungs clear bilaterally, normal air movement was noted. Heart exam notable for irregular rhythm, normal sounds and absence of murmurs, rubs or gallops. Abdomen unremarkable and without evidence of organomegaly, masses, or abdominal aortic enlargement. Bowel sounds are present, abdomen is not distended. Extremities nonedematous, no cyanosis was noted, no clubbing was noted. Neuro: Cranial nerves II through XII are grossly intact, no focal motor deficits were noted, sensation to light touch and pinprick intact, motor exam 5/5 throughout. Psych: Patient is alert and oriente d x3, he does not appear anxious or depressed, he does not appear agitated. Impression:#1 new onset atrial fibrillation with rapid ventricular response #2 essential hypertension #3 ischemic cardiomyopathy Patient appears stable for discharge home on 03/16/2022. I have reviewed Nida Iqbal's discharge summary including her medical assessment and plan of care and with the above additions endorse it. Total clinical time spent by myself addressing the patient's medical issues, reviewing the data, and collaborating with the patient's care team: 20 minutes Visit Charges OBSV E&M: [id number] Observation care discharge
[2022-03-16] MEDS: APIXABAN 5 MG TABLET PO (11:40)
[2022-03-16 11:48] LABS: Cholesterol 228 mg/dL (200); High Density Lipoprotein 67 mg/dL; Triglycerides 135 mg/dL; Very Low Density Lipoprotein 27 mg/dL (5-40)
== END 2022-03-16 10:32 | disposition home or self-care (01) ==
LOC: ED 09:56 → PCU 10:43
PROVIDERS: Nurse Practitioner Family; Admitting Provider Internal Medicine; Emergency Provider Emergency Medicine; PCP Family Medicine; Visit Provider Internal Medicine
DX: I48.91 Unspecified atrial fibrillation (principal); I48.92 Unspecified atrial flutter; I08.0 Rheumatic disorders of both mitral and aortic valves; I49.3 Ventricular premature depolarization; Z79.01 Long term (current) use of anticoagulants; E78.00 Pure hypercholesterolemia, unspecified; Z79.82 Long term (current) use of aspirin; I10 Essential (primary) hypertension; I25.5 Ischemic cardiomyopathy; N40.0 Benign prostatic hyperplasia without lower urinary tract symptoms; Z79.899 Other long term (current) drug therapy; L98.9 Disorder of the skin and subcutaneous tissue, unspecified
CPT/HCPCS: 36415; 71045; 78452; 80048; 80061; 83735; 84443; 84484; 85025; 93005; 93017; 93306; 96374; 99218; 99282; A9500; A4216; G0378; J2785

== ENCOUNTER 2022-03-24 06:02 | Emergency (ER) | payer MEDICARE, SELFPAY ==
[2022-03-24 06:05] VITALS: BP 129/105; PULSE 111; RESP 20; TEMP 36.4; O2SAT 97; BMI 27.7
[2022-03-24 06:10] VITALS: O2SAT 100
[2022-03-24 06:11] VITALS: O2SAT 100
--- NOTE | 2022-03-24 06:26 | ED.VIS.DYS ---
HPI History of Present Illness Chief Complaint: Shortness of Breath Informant: patient Onset/Context/Timing Onset: Days (3) Context: gradual Timing: Continuous and Waxes and wanes Quality: Positive for Orthopnea Worsened by: Lying flat Relieved by: - (Sitting upright) Associated Symptoms Negative for cough, rhinorrhea, post nasal drip, ear pain, fever, sore throat, chills, sweats, clear sputum, white sputum, yellow sputum or green sputum Chest Pain: Positive for None Narrative Narrative: Patient presents with shortness of breath that has been getting worse over the last 3 days. Patient states it has gradually gotten worse. Patient states it is worse whenever he lays flat and is better whenever he sits up. Patient states it has been constant. Patient states it has been waxing and waning over the past few days. For sputum production. Patient denies any fevers or chills. Patient denies any chest pain. Patient denies any nausea or vomiting. PE Risk Factors: Negative for Cancer, OCP + Smoking + > 35, Prior DVT or PE, Recent immobilization, Recent surgery or Recent travel [facility] Medical History Atrial fibrillation with RVR BPH (benign prostatic hyperplasia) Essential hypertension History of prostate cancer Home Medications aspirin 81 mg chewable tablet 81 mg PO DAILY Anticoagulant 03/15/22 [History Last Taken 03/15/22] hydrochlorothiazide 12.5 mg capsule 1 cap PO DAILY B/P 03/15/22 [History Last Taken 03/15/22] multivitamin 1 tab PO DAILY Health 03/15/22 [History Last Taken 03/15/22] tamsulosin 0.4 mg capsule 1 cap PO QHS Bladder 03/15/22 [History Last Taken 03/15/22] apixaban 5 mg tablet (Eliquis) 5 mg PO BID 30 days #60 tabs 03/16/22 [Rx Last Taken Unknown] atorvastatin 20 mg tablet 20 mg PO QHS #30 tabs 03/16/22 [Rx Last Taken Unknown] losartan 50 mg tablet 50 mg PO DAILY 30 days #30 tabs 03/16/22 [Rx Last Taken Unknown] metoprolol tartrate 50 mg tablet 75 mg PO BID 30 days #90 tabs 03/16/22 [Rx Last Taken Unknown] Allergy/AdvReac Type Severity Reaction Status Date / Time atorvastatin [From Lipitor] AdvReac Other Verified 03/24/22 06:05 Family History Father Unknown family medical history Mother Diabetes Social History household members: spouse Smoking Status: Never smoker alcohol intake: never substance use type: does not use ROS ROS ED Constitutional Constitutional ED: Denies chills or fever(s) Eyes Eyes: Reports blurry vision; Denies change in vision ENT ENT ED: Denies rhinorrhea or sore throat Cardiovascular Cardiovascular: Denies chest pain or palpitations Respiratory/Chest Respiratory/Chest: Reports dyspnea; Denies cough Gastrointestinal Gastrointestinal: Reports abdominal pain; Denies nausea or vomiting Genitourinary Genitourinary ED: Denies dysuria or hematuria Musculoskeletal Musculoskeletal: Denies back pain or neck pain Integumentary Denies abscess or rash Neurologic Neurologic: Denies headache(s) or weakness Allergic/Immunologic Allergic/Immunologic ED: Denies mouth swelling or urticaria EXAM Physical Exam Const Vital Signs: 03/24/22 06:05 03/24/22 06:10 03/24/22 06:11 Temperature 97.6 F L Temperature Source Oral Pulse Rate 111 H Respiratory Rate 20 H Respiratory Effort Normal Respiratory Depth Normal Respiratory Pattern Normal Blood Pressure 129/105 H Blood Pressure Mean 113 Pulse Ox 97 100 Oxygen Delivery Method Room Air Nasal Cannula Nasal Cannula Oxygen Flow Rate (L/min) 2 2 Positive well nourished and well developed General Appearance ED: well developed HEENT Reports moist mucous membranes Neck supple and no JVD Resp normal respiratory effort and clear to auscultation bilaterally Auscultation: diminished lung sounds diffuse Cardio regular rate Rhythm: abnormal rhythm irregularly irregular GI normal to inspection, nondistended, normoactive bowel sounds and non-tender Palpation: soft Extremity normal to inspection General Extremety ED: Negative for edema or tenderness General Extremity: Negative for edema Neuro oriented x3, CN's II-XII intact bilaterally and no sensory deficits noted Sensorium / Orientation: alert Motor Exam: strength 5/5 throughout Psych mental status grossly normal Skin no rashes or lesions noted MDM MDM MDM Narrative Medical decision making narrative: Prior records were reviewed. There was a stress test from 03/16/2022 which showed an area of prior ischemia/infarction. There is no new area of ischemia. Ejection fraction was 36%. EKG was obtained. On my interpretation it shows atrial fibrillation with a rate of 111. QRS interval was normal. QTc interval was 508 ms. [place] was normal. There are nonspecific ST-T wave changes. This was unchanged compared to previous EKG dated 03/16/2022. CBC was within normal limits. Comprehensive metabolic profile was ordered and is within normal limits. Troponin was ordered and is normal at 48. PT with INR was ordered and is slightly elevated at 15.5 and 1.3 respectively. D-dimer was ordered and is elevated at 1.10. BNP is ordered and is 778.2. COVID-19 rapid antigen was obtained and is negative. Influenza A and influenza B swabs were ordered and are negative. PA and lateral chest x-ray was obtained. There are 2 views. On my interpretation, there is no acute cardiopulmonary process. There is no cardiomegaly. Bony thorax is normal. Radiologist also interpreted the x-ray and agrees. Because of the elevated D-dimer, CTA of the chest was ordered. This is pending. Care of the patient will be turned over to the oncoming physician pending CTA results. Lab Data Attestation: I reviewed the patient's lab results. Labs: Laboratory Results - last 24 hr 03/24/22 03/24/22 03/24/22 06:10 06:10 06:10 WBC 8.6 RBC 4.80 Hgb 13.5 Hct 41.7 MCV 86.9 MCH 28.1 MCHC 32.4 RDW Std Deviation 40.9 RDW Coeff of Dc 13.1 Plt Count 283 MPV 11.1 Immature Gran % (Auto) 0.300 Neut % (Auto) 55.7 Lymph % (Auto) 29.9 [place] % (Auto) 11.1 H Eos % (Auto) 2.3 Baso % (Auto) 0.7 Absolute Neuts (auto) 4.8 Absolute Lymphs (auto) 2.58 Nucleated RBC % 0 PT 15.5 H INR 1.3 D-Dimer Quant (PE/DVT) 1.10 H* Sodium 138 Potassium 4.5 Chloride 102 Carbon Dioxide 29.0 Anion Gap 7 BUN 21 H Creatinine 0.91 Estim Creat Clear Calc 56.50 Est GFR (MDRD) Af Amer 102 Est GFR (MDRD) Non-Af 84 BUN/Creatinine Ratio 23.0 H Glucose 108 H Calcium 9.1 Total Bilirubin 0.70 AST 84 H ALT 99 H Alkaline Phosphatase 79 Troponin I High Sens 48 B-Natriuretic Peptide Total Protein 7.3 Albumin 3.5 Globulin 3.8 Albumin/Globulin Ratio 0.9 03/24/22 06:10 WBC RBC Hgb Hct MCV MCH MCHC RDW Std Deviation RDW Coeff of Dc Plt Count MPV Immature Gran % (Auto) Neut % (Auto) Lymph % (Auto) [place] % (Auto) Eos % (Auto) Baso % (Auto) Absolute Neuts (auto) Absolute Lymphs (auto) Nucleated RBC % PT INR D-Dimer Quant (PE/DVT) Sodium Potassium Chloride Carbon Dioxide Anion Gap BUN Creatinine Estim Creat Clear Calc Est GFR (MDRD) Af Amer Est GFR (MDRD) Non-Af BUN/Creatinine Ratio Glucose Calcium Total Bilirubin AST ALT Alkaline Phosphatase Troponin I High Sens B-Natriuretic Peptide 778.2 H Total Protein Albumin Globulin Albumin/Globulin Ratio Radiography Diagnostic Testing: Clinical Impression(s) from Imaging Studies Chest X-Ray 03/24/22 06:45 IMPRESSION: No acute cardiopulmonary disease. Electronically Signed: Justin Corona MD at 7:25 EDT Reading Location ID and State: [id number] / , Service support , EKG Initial EKG: Attestation: I personally reviewed and interpreted this EKG as follows: Interpretation: Atrial Fibrillation (111) and Non-Specific ST Changes Prior EKG tracings: available for review Prior: Unchanged (03/16/2022) Discharge Plan Triage Chief Complaint: Shortness of Breath ED Provider: Gigi Menon Dx/Rx/DC Orders Prescriptions: No Action tamsulosin 0.4 mg capsule 1 cap PO QHS hydrochlorothiazide 12.5 mg capsule 1 cap PO DAILY multivitamin Tablet 1 tab PO DAILY aspirin 81 mg Tablet,Chewable 81 mg PO DAILY losartan 50 mg Tablet 50 mg PO DAILY 30 Days Qty: 30 0RF metoprolol tartrate 50 mg Tablet 75 mg PO BID 30 Days Qty: 90 0RF Eliquis 5 mg Tablet 5 mg PO BID 30 Days Qty: 60 0RF atorvastatin 20 mg tablet 20 mg PO QHS Qty: 30 0RF Primary Care Provider: Oral Hodges Referrals: Oarl Hodges MD [Primary Care Provider] -
--- NOTE | 2022-03-24 06:34 | EKG12_ITS ---
Test Reason : Blood Pressure : / mmHG Vent. Rate : 111 BPM Atrial Rate : 000 BPM P-R Int : 000 ms QRS Dur : 122 ms QT Int : 374 ms P-R-T Axes : 000 033 081 degrees QTc Int : 508 ms Atrial fibrillation with rapid ventricular response Non-specific intra-ventricular conduction delay Nonspecific ST and T wave abnormality Abnormal ECG Confirmed by ZOE CORTEZ, ANTONIO ([id number]), senior editor NAJMA MARTINEZ ([id number]) on 03/26/2022 8:49:40 AM Referred By: Confirmed By:ANTONIO ENRIQUEZ MD
--- NOTE | 2022-03-24 06:45 | RAD_ITS ---
STUDY: X-RAY CHEST REASON FOR EXAM: Male, 86 years old. Dyspnea TECHNIQUE: PA and lateral views of the chest. COMPARISON: March 15, 2022. FINDINGS: No focal infiltrates or effusions. No pneumothorax. Mildly elevated right hemidiaphragm. There is borderline cardiomegaly. Normal mediastinum and ochoa. Normal visualized pulmonary arteries. Normal visualized aortic arch and descending thoracic aorta. Normal visualized thoracic spine. Normal visualized ribs, clavicles, and shoulders. There is no demonstrated abnormality of the visualized soft tissue structures of the upper abdomen. RAD/Chest PA and Lateral IMPRESSION: No acute cardiopulmonary disease. Electronically Signed: Justin Corona MD at 7:25 EDT Reading Location ID and State: [id number] / , Service support ,
[2022-03-24 07:09] LABS: BNP,B-Type NATRIURETIC PEPTIDE 778.2 pg/mL (0-100)
[2022-03-24 07:11] LABS: International Normalized Ratio 1.3; Prothrombin Time (Protime)PT. 15.5 SECONDS (11.7-14.9)
[2022-03-24 07:16] LABS: ALB/GLOB Ratio 0.9 RATIO (0.9-2.4); AST(SGOT) 84 U/L (15-37); Alanine Aminotransfer ALT/SGPT 99 U/L (16-61); Albumin, Serum 3.5 g/dL (3.2-5.0); Alkaline Phosphatase 79 U/L (45-117); Anion Gap 7 (5-15); BUN 21 mg/dL (7-18); Calcium,Total 9.1 mg/dL (8.5-10.1); Chloride 102 mmol/L (98-107); Creatinine, Serum 0.91 mg/dL (0.70-1.30); EST Glomerular Filtration Rate 84 mL/min (>60); Est Glom Filt Rate - Afr Amer 102 mL/min (>60); Globulin 3.8 g/dL (2.2-4.2); Glucose 108 mg/dL (74-106); Potassium 4.5 mmol/L (3.5-5.1); Protein, Total 7.3 g/dL (6.4-8.2); Sodium Level 138 mmol/L (136-145); Troponin-I HS 48 pg/mL (3.0-78.0)
--- NOTE | 2022-03-24 07:19 | CT_ITS ---
EXAM: CT ANGIOGRAPHY CHEST WITHOUT AND WITH INTRAVENOUS CONTRAST CLINICAL INDICATION: Elevated D-dimer TECHNIQUE: Helically acquired angiography images were obtained of the chest without and with intravenous contrast. This CT exam was performed using one or more of the following dose reduction techniques: automated exposure control, adjustment of the mA and/or kV according to patient size, and/or use of iterative reconstruction technique. This report was created using [employer] report generation technology. MIP reconstructed images were created and reviewed. CONTRAST: IV 100mL [id number] COMPARISON: None. FINDINGS: PULMONARY ARTERIES: Unremarkable. Normal in caliber. No evidence of pulmonary embolism. AORTA: Unremarkable. Normal in caliber. No evidence of dissection. GREAT VESSELS OF AORTIC ARCH: Unremarkable. Normal in caliber. No evidence of dissection. LUNGS AND PLEURAL SPACES: There are [id number] bilateral pleural effusions. There is no focal consolidation. No mass. No pneumothorax. HEART: Unremarkable. Heart size is normal. No pericardial effusion. No signs of right heart strain, ratio of right ventricle to left ventricle measures less than 1. MEDIASTINUM: Unremarkable. No mediastinal or hilar adenopathy. Esophagus is unremarkable. No hiatal hernia. THYROID: Unremarkable. No thyroid lesions. BONES/JOINTS: Unremarkable. No suspicious lytic or blastic abnormality. CT/CTA Chest W/WO Contrast IMPRESSION: 1. No evidence of pulmonary embolus. 2. Bilateral pleural effusions. There is no focal consolidation. Electronically Signed: Aditya Robles MD at 8:23 EDT ,
[2022-03-24 08:28] VITALS: BP 126/72; PULSE 98; RESP 18; O2SAT 96
[2022-03-24 09:01] VITALS: BP 131/72; PULSE 104; RESP 16; O2SAT 96
== END 2022-03-24 09:16 | disposition home or self-care (01) ==
PROVIDERS: Emergency Provider Emergency Medicine; PCP Family Medicine; Visit Provider Emergency Medicine
DX: R06.02 Shortness of breath (principal); I48.91 Unspecified atrial fibrillation; I10 Essential (primary) hypertension; N40.0 Benign prostatic hyperplasia without lower urinary tract symptoms; Z79.01 Long term (current) use of anticoagulants; Z79.82 Long term (current) use of aspirin; Z79.899 Other long term (current) drug therapy
CPT/HCPCS: 71046; 71275; 80053; 83880; 84484; 85025; 85379; 85610; 87428; 93005; 99284; Q9967; A4216

== ENCOUNTER 2022-04-23 10:17 | Day surgery (SDC) | payer MEDICARE, SELFPAY ==
[2022-04-15 08:56] VITALS: BMI 27.7
--- NOTE | 2022-04-19 16:28 | HP.PCM_ITS ---
History and Physical Date of Admission: 04/23/22 [facility] [address] [place], [place] [address] OFFICE VISIT Date of Service:? 03/29/22 MR#: [id number] Acct: [id number] Name:OLIVA MARCOS Rep #: [id number] : 1935 Provider: ?SARAH Corona Age/Sex:? 86/M ?Location: [facility] Status: Signed HPI HPI History of Present Illness Details: This is a 86-year-old male who presents to the office for a cardiovascular outpatient follow-up and hospital follow-up.? He was first seen in consultation at [facility] in March 2022 for atrial fibrillation/flutter.? During his hospitalization, he had an echocardiogram on 03/15/2022 that showed an ejection fraction of 30%, mildly enlarged left atrium, moderate mitral valve insufficiency, mild aortic valve insufficiency, and an RVSP of 21 mmHg.? He had a stress test on 03/16/2022 that showed previous injury/infarction involving portions of the mid to distal inferior and inferoapical segments and no changes considered diagnostic for ischemia.? He was discharged on metoprolol and Eliquis therapy. He was seen in the emergency department on 03/24/2022 for shortness of breath.? His EKG showed atrial fibrillation at a rate of 111 bpm.? His troponin was normal.? BNP was elevated at 778.2.? His D-dimer was positive and chest CT scan was negative for pulmonary embolism or aortic dissection.? He also has a past medical history of hypertension and prostate cancer. He denies chest, arm, jaw, or neck discomfort. He denies symptoms of shortness of breath with exertion, shortness of breath at rest, orthopnea, PND, sudden weight gain, or bilateral lower extremity edema. He denies chronic cough. He denies palpitations, lightheadedness, dizziness, near syncope, or syncopal episodes. He denies snoring. He denies claudication issues. He denies fever or chills. He denies blood in urine, blood in stool, or epistaxis. He denies myalgia. He denies unexplainable fatigue. His exercise tolerance is stable. Intake Vital Signs ? 03/15/2211:22 03/24/2206:05 03/29/2213:27 03/29/2213:32 Height 5 ft 7 in 5 ft 7 in 5 ft 7 in 5 ft 7 in Intake Visit Reasons:?S/P [facility] (PT WANTED SOONER F/U) Peanut Picker Required: No Is patient in pain?: No Allergies atorvastatin [From Lipitor] Adverse Reaction (Verified 03/29/22 13:56) Other Medications aspirin 81 mg chewable tablet 81 mg PO DAILY Anticoagulant 03/15/22 [History Confirmed 03/29/22] multivitamin 1 tab PO DAILY Health 03/15/22 [History Confirmed 03/29/22] tamsulosin 0.4 mg capsule 1 cap PO QHS Bladder 03/15/22 [History Confirmed 03/29/22] apixaban 5 mg tablet (Eliquis) 5 mg PO BID 30 days #60 tabs 03/29/22 [Rx Confirmed 03/29/22] furosemide 40 mg tablet (Lasix) 40 mg PO BID #60 tabs 03/29/22 [Rx Confirmed 03/29/22] losartan 50 mg tablet 50 mg PO DAILY #90 tabs 03/29/22 [Rx Confirmed 03/29/22] metoprolol tartrate 50 mg tablet 75 mg PO BID 90 days #270 tabs 03/29/22 [Rx Confirmed 03/29/22] PFSH Medical History? Atrial fibrillation with RVR BPH (benign prostatic hyperplasia) Essential hypertension History of prostate cancer Family History? Father Unknown family medical historyMother Diabetes Social History? household members:? spouse Smoking Status:? Never smoker alcohol intake:? never substance use type:? does not use ROS Const Const: Negative for fatigue, weakness, body ache, fever(s) or chills ENT ENT: Negative for dizziness or Nosebleed/epistaxis Cardio Chest Pain: No Palpitations: No Edema: None Muscle aches with walking: None Resp Respiratory: Negative for SOB with activity, SOB at rest, SOB orthopnea\SOB lying down, Cough or paroxysmal nocturnal dyspnea GI GI: Negative nausea, vomiting blood/hematemesis, bright, red blood in stools or black,tarry stools : Negative for hematuria or frequent nighttime urination/ nocturia Musc Musc: Negative for muscle aches/ myalgia Skin Skin: Negative non-healing lesions or rash Neuro Neuro: Negative for dizziness, lightheadedness, near syncope, syncope, orthostatic symptoms or weakness Endo Endo: Negative for fatigue Allergy Allergy/Immunology: Negative for rash Cardiology Exam Const Appearance: cooperative, healthy appearing, comfortable and no acute distress Nutritional Appearance: well nourished and overweight Orientation: alert, awake and oriented x3 Head Head: normal to inspection Ears: hearing grossly normal bilaterally Nose: external nose normal Face and Sinus: face symmetric Mouth: oral mucosae normal Eyes General: appearance normal, both eyes and all related structures Eyelids: eyelids normal EOM: EOM intact bilaterally Neck Neck: normal visual inspection and no JVD Carotids: normal carotid upstroke Chest Chest inspection: normal inspection of the chest, symmetric chest movement and normal respiratory effort; Negative cough Auscultation: Bilateral: Clear to Auscultation Cardio Rate: regular rate Rhythm: irregular rhythm Heart sounds: S1 normal, S2 normal and murmur; Negative rub or gallop Murmur: Grade 1/6, soft and EDER loudest LLSB GI GI: normal to inspection Neuro General: patient alert, patient awake, patient oriented x3 and CN's II-XI intact bilaterally Skin Skin: other Left cheek skin lesion Extremities Pulses: Normal: Right Posterior Tibial Pulse, Left Posterior Tibial Pulse, Right Radial Pulse and Left Radial Pulse Lower Extremity Edema: None: Bilateral Psych Psychological: normal affect Assessment and Plan Assessment and Plan (1) Atrial fibrillation and flutter: ?Status:?Acute ?Plan: Patient's last twelve-lead ECG on 03/24/2022 showed atrial fibrillation.? He appears to be in an irregular rhythm on exam.? His heart rate is well controlled today.? He will continue with metoprolol tartrate for rate control.? He will continue with Eliquis for CVA protection.? At this time, he will continue with aspirin therapy, predominately due to risk factors of coronary artery disease, though his stress test is negative.? We will consider discontinuing aspirin on an ongoing basis. (2) Cardiomyopathy: ?Status:?Acute ?Plan: Nonischemic cardiomyopathy: Echocardiogram 03/15/2022-EF: 30% Twelve-lead EC03/24/2022-atrial fibrillation with QRS 122 [place] [employer] Functional Class: 1 ACC/AHA stage: C Guideline Directed Medical Therapy: Losartan 50 mg p.o. daily Lasix 40 mg p.o. twice daily. Patient stress test on 03/16/2022 was negative for ischemia.? Thus, his reduced ejection fraction may be rate and rhythm related.? Hopefully, by maintaining controlled heart rate his ejection fraction improves.? If it does not with rate control, will consider cardioversion to see if maintaining sinus rhythm improves his ejection fraction.? If rate and rhythm control does not improve ejection fraction, he may require further CAD work-up.? He will continue with losartan and metoprolol titrate therapy.? Over time, we could consider changing losartan to Entresto, changing metoprolol to tartrate to metoprolol succinate or Coreg, or adding Farxiga.? He does knowledge improvement in symptoms since ER visit and addition of Lasix therapy. Over time, if his ejection fraction has not improved despite ongoing medical therapy and work-up above 35%, we will consider preventative ICD. (3) Mitral valve disorder: ?Status:?Acute ?Plan: Echocardiogram on 03/15/2022 showed an ejection fraction of 30% and moderate mitral valve insufficiency.? He was noted to have mildly enlarged left atrium and an RVSP of 21 mmHg. (4) Essential hypertension: ?Status:?Chronic ?Plan: Patient's blood pressure is well-controlled.? We will continue to monitor. We will not make any medication regimen changes. (5) Preoperative cardiovascular examination: ?Status:?Acute ?Plan: Patient does acknowledge upcoming appointment for cataract surgery with [facility] as well as skin cancer removal with [facility]. Given his recent diagnosis of atrial fibrillation, he may benefit from an extended period of anticoagulation before discontinuing to proceed with interventions. Given his reduced ejection fraction, it was also recommended to proceed with cardiac optimization and work-up prior to proceeding with cataract surgery.? Patient does express reluctance for such.? He may proceed with skin removal, if anticoagulation can be continued and suitable by surgery team. He states he will discuss further [facility] in regards to further plan/timing of cataract surgery.? He will let us know what he has learned and what he decides. ? ? ? Medications: Changed From metoprolol tartrate 75 mg (1.5 x 50 mg) PO BID 30 days 90 ta bs 0RF ? ? To metoprolol tartrate 75 mg (1.5 x 50 mg) PO BID 90 days 270 t abs 3RF ? ? From losartan 50 mg? PO DAILY 30 days 30 tabs 0RF ? ? To losartan 50 mg? PO DAILY 90 tabs 3RF ? ? Refilled furosemide (Lasix) 40 mg? PO BID 60 tabs 11RF ? ? apixaban (Eliquis) 5 mg? PO BID 30 days 60 tabs 11RF ? ? Plan Details Additional Comments: Thank you for allowing us to participate in the patients plan of care, if you have any questions please do not hesitate to call. This note was generated using a voice recognition system and there may be incorrect words, spelling or punctuation that were not noted when reviewing the office note prior to saving. Portions of this documentation were copied and pasted from previous office visit notes to provide a cohesive continuity of the history. The note has been reviewed, edited, and updated, as necessary. Follow Up: ? ? 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 ? 12-14 Months (PFM) Coding Level of Care Code Off vis,est,level 3 Diagnoses Atrial fibrillation and flutter? I48.91; I48.92 Cardiomyopathy? I42.9 Mitral valve disorder? I05.9 Essential hypertension? I10 Preoperative cardiovascular examination? Z01.810 Coding Level of Care Code Off vis,est,level 3 Diagnoses Atrial fibrillation and flutter? I48.91; I48.92 Cardiomyopathy? I42.9 Mitral valve disorder? I05.9 Essential hypertension? I10 Preoperative cardiovascular examination? Z01.810 Supplemental Info Supplemental Information Echocardiogram from 03/15/2022: Interpretation Summary Mildly dilated left ventricle. Moderate segmental systolic dysfunction (see wall motion). The estimated ejection fraction is 30 %. Sigmoid septum. The left atrium is mildly enlarged. There is mild mitral annular calcification. Moderate (2+) mitral valve insufficiency. Mild tricuspid valve insufficiency. Mild focal aortic valve calcification. Mild (1+) aortic valve insufficiency. Trivial pulmonic valve insufficiency. Unable to assess diastolic dysfunction. Stress Test Report Date: 03-16-2022 Procedure: Pharmacologic stress nuclear imaging study Indications: Atrial fibrillation/flutter; cardiomyopathy Consent: Per the patient Procedure: The patient underwent pharmacologic (Regadenoson 0.4mg ) evaluation with a peak heart rate of 94 beats per minute (69%predicted maximal heart rate) and a peak blood pressure of 128/70 mmHg. The baseline ECG demonstrated atrial flutter.? The peak pharmacologic ECG demonstrated no obvious ECG changes. There was an occasional PVC in recovery. There was no complaint of chest discomfort during pharmacologic infusion or recovery. The examination was discontinued secondary to completion of protocol. Impression: 1.? Pharmacologic (Regadenoson) evaluation 2.? Peak pharmacologic ECG with continued atrial flutter with no obvious ECG changes. 3.? There was an occasional PVC during recovery. 4.? Nuclear images pending Myocardial perfusion imaging study: Technique: The patient was injected with 12.0 millicuries of technetium 99m Cardiolite and subsequently rest SPECT Cardiolite nuclear imaging was obtained in the horizo ntal long, vertical long, and short axis views. The patient underwent pharmacologic (Regadenoson) evaluation with a peak heart rate of 94 beats per minute (69% percent predicted maximal heart rate) and a peak blood pressure of 128/70 mmHg. The patient was injected with 35.8 millicuries of technetium 99m Cardiolite and subsequently stress SPECT Cardiolite nuclear imaging was obtained in the horizontal long, vertical long, and short axis views.? A gated Cardiolite study at peak stress was obtained. Interpretation: Rest and stress SPECT Cardiolite nuclear imaging status post realignment, normal ization, and attenuation correction demonstrate the appearance of diminished absence of myocardial perfusion/tracer uptake in portions of the mid to distal inferior/inferoapical segments without significant change between rest and stress.? There is diminished end-systolic thickening and brightening in the aforementioned area.? The gated Cardiolite study demonstrates diminished myocardial thickening and inward wall motion in the aforementioned area.? The reported LVEF is 36%. Impression: 1.? Rest and stress SPECT current nuclear imaging demonstrate myocardial perfusion changes appearing compatible with an area of previous myocardial injury/infarction involving portions of the mid to distal inferior and inferoapical segments with no myocardial perfusion changes considered diagnostic for associated stress-induced myocardial ischemia. 2.? The gated Cardiolite study reports an LVEF of 36%. Chest CTA from 03/24/2022: IMPRESSION: ? 1.? No evidence of pulmonary embolus. ? 2.? Bilateral pleural effusions.? There is no focal consolidation. ? Labs: ?? ? LDL Cholesterol 134 mg/dL (0-130)? H ?? ? HDL Cholesterol 67 mg/dL (40-) ?? ? Triglycerides 135 mg/dL (-199) ?? ? VLDL Cholesterol 27 mg/dL (5-40) Diagnostics: ?? ? Electrocardiogram ? Echocardiogram ? Stress Test NM ? Stress Test ? Chest X-Ray ? Pulmonary: ?? ? No Data to Display 03/29/22 1904 <Electronically signed by Richar SMITH> Date Richar SMITH Cosigner Signature: Date (if applicable) CC:? Dr. Oral Hodges MD ~ Assessment & Plan Addt'l Comments Addendum: The patient has been referred for his atrial dysrhythmia with an attempt at regaining sinus rhythm with synchronized biphasic DC cardioversion. The procedure and risk were discussed with the patient. He was agreeable to this approach. I have re-examined the patient. There are no clinical changes since date of exam. This note was generated using a voice recognition system and there may be incorrect words, spelling or punctuation that were not noted when reviewing the office note prior to saving.
--- NOTE | 2022-04-23 12:41 | PRO.PCM_ITS ---
Procedure Report Date of Procedure: 04/23/22 CONSCIOUS SEDATION REPORT DATE OF SERVICE: April 23, 2022 BRIEF HISTORY OF PRESENT ILLNESS: The patient is an 86-year-old male who presented to [facility] for an elective outpatient cardioversion due to underlying atrial fibrillation. The patient is systemically anticoagulated on Eliquis. His last surface echocardiogram demonstrated an ejection fraction of 30%. He denies any prior anesthetic complications. He is a non-smoker without any diagnosis of COPD, asthma or obstructive sleep apnea. PHYSICAL EXAMINATION: VITAL SIGNS: Reviewed and were acceptable. GENERAL: The patient is a male, in no apparent distress, speaking in full sentences. HEENT: Normocephalic, atraumatic. Mucous membranes are moist and pink. Good mouth opening noted. Trachea is midline. MPII CHEST: S1, S2 irregularly irregular. No murmurs, rubs or gallops were noted. LUNGS: Clear to auscultation bilaterally without appreciable wheezes, rales or rhonchi. ABDOMEN: Soft, nontender, nondistended. Positive bowel sounds. EXTREMITIES: There is no clubbing, cyanosis or edema. ASA Class: II DESCRIPTION OF PROCEDURE: After confirmation of informed consent, the patient's anesthesia plan was reviewed in detail. Etomidate was chosen. Risks and benefits were reviewed and the patient agreed to proceed. At 1207, the patient was given 4 mg of etomidate. 2 attempts were undertaken at cardioversion, the first at 200 J and the second at 300 J, the latter of which was successful in restoring normal sinus rhythm. The patient was monitored until 1220, at which time he reached his baseline mental status and function. The patient tolerated the procedure well. COMPLICATIONS: None ESTIMATED BLOOD LOSS: None RECOMMENDATIONS: Okay to recover in usual fashion. Procedures Pulmonary 9xxxx: [id number] Con Sedation
--- NOTE | 2022-04-23 12:47 | CARDIOVERS_ITS ---
Cardioversion Cardioversion: Date: 04-23-2022 Procedure: Synchronized Biphasic DC Cardioversion Indications: Atrial fibrillation Consent: Per the Patient Anesthesia: per Dr. Malik of pulmonology and critical care medicine with etomidate 4 mg IV push total Procedure: Synchronized Biphasic DC Cardioversion: 200 J x 1: Result: Atrial fibrillation Synchronized Biphasic DC cardioversion: 300 J x 1: Result: Sinus rhythm; PACs; PVCs Complications: no apparent complications This note was generated with [employer] software. It may contain incorrect words, spelling, and punctuation that were not noted in checking the note before signing.
== END 2022-04-23 13:10 | disposition home or self-care (01) ==
LOC: CLSP 10:18
PROVIDERS: PCP Family Medicine; Visit Provider Internal Medicine Cardiovascular Disease
DX: I48.91 Unspecified atrial fibrillation (principal); I42.8 Other cardiomyopathies; I48.92 Unspecified atrial flutter; I10 Essential (primary) hypertension; N40.0 Benign prostatic hyperplasia without lower urinary tract symptoms; Z79.01 Long term (current) use of anticoagulants; Z79.82 Long term (current) use of aspirin; Z79.899 Other long term (current) drug therapy
CPT/HCPCS: 92960; 93005; J7040

== ENCOUNTER → 2022-05-13 | Outpatient (CLI) | payer MEDICARE, SELFPAY ==
--- NOTE | 2022-05-13 12:49 | ECHOLC_ITS ---
Reason For Study: Reduced EF Procedure This was a 2D Doppler, Color Flow transthoracic echocardiogram. The study was technically difficult. Contrast injection was performed. Exam performed in department. Left Ventricle Mildly dilated left ventricle. Moderate global left ventricular systolic dysfunction. The estimated ejection fraction is 30 %. Unable to assess diastolic dysfunction. Right Ventricle Normal RV size. Normal systolic function. Atria The left atrium is moderately enlarged. The right atrium is mildly enlarged. No doppler evidence for ASD. Mitral Valve There is mild mitral annular calcification. Extension of the mitral annular calcification on the base of the posterior mitral valve leaflet. Trivial mitral valve insufficiency. Tricuspid Valve Normal tricuspid valve. Mild tricuspid valve insufficiency. Right ventricular systolic pressure estimated to be 37 mmHg. Aortic Valve Trisinus/trileaflet aortic valve. Mild focal aortic valve calcification. Pulmonic Valve The pulmonic valve is not well visualized. Great Vessels Normal sized aortic root. Pericardium/Pleural No pericardial effusion. Medication 20 gauge I.V. with prn adaptor inserted into right arm. Diluted definity 1.5ml given slow IV push to enhance endocardial definition. MMode/2D Measurements & Calculations LVIDd: 5.7 cm IVSd: 1.5 cm Ao root diam: 3.4 cm LVIDs: 5.0 cm LVPWd: 1.2 cm LA dimension: 5.5 cm FS: 11.8 % LAV(MOD-bp): 89.8 ml LA A4 area: 28.0 cm2 RA A4 area: 20.1 cm2 LAV(MOD-bp) Indexed: 47.6 ml/m2 LAV(MOD-sp2): 91.5 ml LAV(MOD-sp4): 86.0 ml Doppler Measurements & Calculations PA V2 max: 72.4 cm/sec TR max lena: 291.9 cm/sec TR max P.2 mmHg ECHO/Echo Limited w/Contrast Interpretation Summary The study was technically difficult. Contrast injection was performed. Mildly dilated left ventricle. Moderate global left ventricular systolic dysfunction. The estimated ejection fraction is 30 %. The left atrium is moderately enlarged. The right atrium is mildly enlarged. There is mild mitral annular calcification. Extension of the mitral annular calcification on the base of the posterior mitr al valve leaflet. Trivial mitral valve insufficiency. Mild tricuspid valve insufficiency. Mild focal aortic valve calcification. Right ventricular systolic pressure estimated to be 37 mmHg. Unable to assess diastolic dysfunction. Ordering Physician: Richar Corona Referring Physician: MD Tracie Oral Performed By: Maik Fuentes [facility]
== END | disposition home or self-care (01) ==
PROVIDERS: PCP Family Medicine; Referring Provider Nurse Practitioner Family; Visit Provider Nurse Practitioner Family
DX: I50.22 Chronic systolic (congestive) heart failure (principal); I42.9 Cardiomyopathy, unspecified
CPT/HCPCS: 93308; Q9957; A4216; C8924

== ENCOUNTER 2022-06-13 21:34 | Observation (INO) | payer MEDICARE, SELFPAY ==
[2022-06-13 21:36] VITALS: BP 115/63; PULSE 34; RESP 15; TEMP 36.6; BMI 25.8
--- NOTE | 2022-06-13 22:15 | EKG12_ITS ---
Test Reason : DYSRHYTHMIA Blood Pressure : / mmHG Vent. Rate : 048 BPM Atrial Rate : 048 BPM P-R Int : 188 ms QRS Dur : 136 ms QT Int : 526 ms P-R-T Axes : 048 -24 014 degrees QTc Int : 469 ms Sinus bradycardia with occasional Premature ventricular complexes Left ventricular hypertrophy with QRS widening and repolarization abnormality Abnormal ECG Confirmed by ZOE CORTEZ, ANTONIO ([id number]), technical writer and editor NAJMA MARTINEZ ([id number]) on 06/14/2022 10:40:41 AM Referred By: KORINA Confirmed By:ANTONIO ENRIQUEZ MD
--- NOTE | 2022-06-13 22:15 | CT_ITS ---
STUDY: CT BRAIN WITHOUT CONTRAST REASON FOR EXAM: Male, 86 years old. Dizziness, recent fall on anticoagulants RADIATION DOSAGE (If Supplied By Facility): CTDIvol = ( 44.99 ) mGy, DLP = ( 812.98 ) mGycm TECHNIQUE: Transaxial CT imaging of the brain was performed without administration of intravenous contrast material. Individualized dose optimization techniques were used for this CT. COMPARISON: No relevant priors. FINDINGS: Normal soft tissue structures. Normal calvarium. There is mild cerebral atrophy with widening of the extra-axial spaces and ventricular dilatation. Normal white matter tracts of the cerebral hemispheres. Normal basal ganglia and thalami. Normal brainstem. Normal cerebellum. There is no intracranial hemorrhage. Small encephalomalacia about the left frontal horn. 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 There are no findings of an acute ischemic infarction. Normal visualized paranasal sinuses. Right ocular lens replacement. CT/Brain/Head without Contrast IMPRESSION: No acute abnormal intracranial finding. Electronically Signed: Anibal Bruno MD at 23:08 EDT ,
[2022-06-13 22:21] VITALS: BP 150/54; BP 165/60; BP 166/63; PULSE 41; PULSE 42
[2022-06-13] MEDS: Atropine Sulfate 1 MG/10 ML Syringe IV ×2 (22:28→23:20)
[2022-06-13 22:40] LABS: Absolute Lymphocyte Count 2.45 X10^3/uL (0.83-4.51); Absolute Neutrophil Count 6.5 X10^3/uL (2.0-7.7); Eosinophil# 0.33 X10^3/uL; Eosinophils% 3.2 % (0-5); Hematocrit 40.1 % (40-54); Hemoglobin 13.2 g/dL (13.0-16.5); Lymphocyte # 2.45 X10^3/ul (0.83-4.51); Lymphocyte % 23.4 % (19-41); Mean Corp Hgb Conc 32.9 g/dL (32-36); Mean Corpuscular Hgb 28.3 pg (27.0-32.0); Mean Corpuscular Volume 85.9 fL (80-94); Mean Platelet Vol. 10.5 fl (6.2-12.0); Monocyte% 9.6 % (0-10); NRBC Flagged by Analyzer 0 % (0-5); Neutrophil # 6.51 X10^3/uL (2.7-7.7); Neutrophil % 62.2 % (47-70); Platelet Count 287 K/mm3 (150-450); RBC Distribution Width SD 43.5 fl (35.1-43.9); Red Blood Count 4.67 M/mm3 (4.6-6.2); White Blood Count 10.5 K/mm3 (4.4-11.0)
[2022-06-13 23:06] LABS: Anion Gap 7 (5-15); BUN 19 mg/dL (7-18); Calcium,Total 9.5 mg/dL (8.5-10.1); Chloride 99 mmol/L (98-107); Creatinine, Serum 1.12 mg/dL (0.70-1.30); EST Glomerular Filtration Rate 66 mL/min (>60); Est Glom Filt Rate - Afr Amer 80 mL/min (>60); Glucose 123 mg/dL (74-106); Magnesium 2.2 mg/dL (1.6-2.6); Potassium 3.5 mmol/L (3.5-5.1); Sodium Level 138 mmol/L (136-145)
[2022-06-13 23:08] VITALS: BP 167/67; PULSE 42; RESP 20; O2SAT 97
[2022-06-13 23:28] VITALS: BP 149/61; PULSE 46; RESP 18; O2SAT 96
[2022-06-14] VITALS (16 sets, daily range): BP systolic 146–186; BP diastolic 57–93; PULSE 37–74; RESP 17–20; TEMP 36.4–36.8; O2SAT 94–98; BMI 26.6
--- NOTE | 2022-06-14 00:10 | PCM.HP.STD ---
[facility] - General General Date of Admission: 06/14/22 Date of Service: 06/14/22 Chief Complaint: Low pulse HPI Narrative OLIVA PEREIRA, is a 86 M with a significant history of prostate cancer; atrial fibrillation status post cardioversion in metoprolol and apixaban; BPH on dutasteride; heart failure with reduced ejection fraction who presents to the emergency department with low pulse. Reportedly because he was feeling unwell he checked his pulse. His pulse was 45 earlier in the day and it kept dropping the entire day with lowest pulse of 33. Because of low pulse he took 25 mg of his scheduled metoprolol instead of the prescribed dose of 75 mg the night before presentation. He reports lightheadedness on and off for about 2 months. He reports unsteady gait. The past 2 days patient he has used a cane to walk because of unsteadiness. Reportedly in the past month he has fallen about 3 times. He denies any symptoms. Emergency plan doctor discussed the case with a office asst who recommended patient stay at the hospital for his beta-rylie to be titrated and to be observed. [facility] Medical History Atrial fibrillation with RVR BPH (benign prostatic hyperplasia) Essential hypertension History of prostate cancer Home Medications aspirin 81 mg chewable tablet 81 mg PO DAILY Anticoagulant 03/15/22 [History Last Taken 04/23/22] multivitamin 1 tab PO DAILY Health 03/15/22 [History Last Taken 03/15/22] apixaban 5 mg tablet (Eliquis) 5 mg PO BID 30 days #60 tabs 03/29/22 [Rx Last Taken 04/23/22] losartan 50 mg tablet 50 mg PO DAILY #90 tabs 03/29/22 [Rx Last Taken 04/23/22] metoprolol tartrate 50 mg tablet 75 mg PO BID 90 days #270 tabs 06/12/22 [Rx Last Taken Unknown] dutasteride 0.5 mg capsule 0.5 mg PO DAILY 06/13/22 [History Last Taken Unknown] Allergy/AdvReac Type Severity Reaction Status Date / Time atorvastatin [From Lipitor] AdvReac Other Verified 06/13/22 21:40 Family History Father Unknown family medical history Mother Diabetes Surgical History History of cardioversion (~04/23/22) Social History household members: spouse Smoking Status: Never smoker alcohol intake: never substance use type: does not use ROS ROS Narrative Pertinent positives and pertinent negatives as noted in HPI. All other systems were reviewed and are negative. Vital Signs Vital Signs Vital Signs: 06/13/22 21:36 06/13/22 21:48 06/13/22 22:21 Temperature 97.8 F Temperature Source Temporal Pulse Rate 34 L Pulse Rate [Lying] 42 L Pulse Rate [Sitting (for 1 minute prior to obtaining)] 41 L Pulse Rate [Standing (for 1 minute prior to obtaining)] 41 L Respiratory Rate 15 Respiratory Pattern Normal Blood Pressure 115/63 Blood Pressure [Lying] 150/54 H Blood Pressure [Sitting (for 1 minute prior to obtaining)] 166/63 H Blood Pressure [Standing (for 1 minute prior to obtaining)] 165/60 H Blood Pressure Mean 80 Blood Pressure Mean [Lying] 86 Blood Pressure Mean [Sitting (for 1 minute prior to obtaining)] 97 Blood Pressure Mean [Standing (for 1 minute prior to obtaining)] 95 Pulse Ox Oxygen Delivery Method Room Air 06/13/22 23:08 06/13/22 23:28 06/14/22 00:04 Temperature Temperature Source Pulse Rate 42 L 46 L 47 L Pulse Rate [Lying] Pulse Rate [Sitting (for 1 minute prior to obtaining)] Pulse Rate [Standing (for 1 minute prior to obtaining)] Respiratory Rate 20 H 18 20 H Respiratory Pattern Blood Pressure 167/67 H 149/61 H 149/61 H Blood Pressure [Lying] Blood Pressure [Sitting (for 1 minute prior to obtaining)] Blood Pressure [Standing (for 1 minute prior to obtaining)] Blood Pressure Mean 100 90 90 Blood Pressure Mean [Lying] Blood Pressure Mean [Sitting (for 1 minute prior to obtaining)] Blood Pressure Mean [Standing (for 1 minute prior to obtaining)] Pulse Ox 97 96 97 Oxygen Delivery Method Room Air Room Air Room Air Weight Weight: 74.843 kg Body Mass Index (BMI) 25.8 Physical Exam Narrative Physical exam: General: Well-nourished, well-developed. Head: Normocephalic, atraumatic, no tenderness Eyes: Vision is grossly intact. EOMI ENT, no trauma, moist mucous membranes, no rhinorrhea Neck: Nontender, full range of motion. CVS: Bradycardia. S1-S2 present. No murmur, gallop or rub. Respiratory : clear to auscultation bilaterally, chest wall nontender, no wheezing Abdomen: Soft, nontender, nondistended, normal bowel sounds, no masses : Deferred Back: Nontender, no CVA tenderness. Extremities: Nontender full range of motion, no trauma Skin: Normal color, no trauma, abrasions Neuro: Alert, oriented, cranial nerves II through XII grossly intact. Psychiatry: Normal mood. Normal affect. Not depressed. Not anxious. Results Lab / Micro Data Result Diagrams: 06/13/22 22:15 06/13/22 22:15 Labs: Laboratory Results - last 24 hr 06/13/22 22:15: WBC 10.5, RBC 4.67, Hgb 13.2, Hct 40.1, MCV 85.9, MCH 28.3, MCHC 32.9, RDW Std Deviation 43.5, RDW Coeff of Dc 14.0, Plt Count 287, MPV 10.5, Immature Gran % (Auto) 0.600, Neut % (Auto) 62.2, Lymph % (Auto) 23.4, [place] % (Auto) 9.6, Eos % (Auto) 3.2, Baso % (Auto) 1.0, Absolute Neuts (auto) 6.5, Absolute Lymphs (auto) 2.45, Nucleated RBC % 0 06/13/22 22:15: Sodium 138, Potassium 3.5, Chloride 99, Carbon Dioxide 32.0, Anion Gap 7, BUN 19 H, Creatinine 1.12, Estim Creat Clear Calc 45.90, Est GFR (MDRD) Af Amer 80, Est GFR (MDRD) Non-Af 66, BUN/Creatinine Ratio 17.0, Glucose 123 H, Calcium 9.5, Magnesium 2.2, TSH 11.10 H Radiology Impression Brain CT 06/13/22 22:15 IMPRESSION: No acute abnormal intracranial finding. Electronically Signed: Anibal Bruno MD at 23:08 EDT , Assessment & Plan Assessment/Plan (1) Symptomatic bradycardia: (2) Chronic systolic (congestive) heart failure: PLAN: Plan Symptomatic bradycardia EKG was visualized and independently interpreted. EKG with sinus bradycardia with rate of 48 and with PVCs. Potassium was 3.5. Replaced. Magnesium is 2.2, normal. Order to put a pacemaker pads on patient. Observe at progressive care unit on telemetry. Cardiology consult. Elevated TSH TSH on presentation was 11.10. Will check a free T3 and free T4 levels. Multiple falls Brain CT was visualized and independently interpreted. No acute intracranial process. Check vitamin D and vitamin B12 level. Physical therapy consult for balance training Hypertension Blood pressure is not within goal Home losartan continued. Hold metoprolol secondary to bradycardia. Trend blood pressure and adjust blood pressure medications. Chronic congestive heart failure Stable Old records reviewed: Echocardiogram on 03/15/2022 showed estimated ejection fraction of 30%. Right ventricle systolic pressure was 21 mmHg Losartan continued. Metoprolol held secondary to symptomatic bradycardia. DVT prophylaxis Not indicated patient is on Eliquis for A. fib and Eliquis has been continued. Charges/Coding Visit Charges OBSV E&M: 55400 Initial observation care L3
--- NOTE | 2022-06-14 00:42 | EX.ED.DYSGE1 ---
HPI History of Present Illness Chief Complaint: Dizziness Narrative Narrative: Patient is an 86-year-old male with past medical history of paroxysmal atrial fibrillation as well as hypertension cardiomyopathy and congestive heart failure. He states that he has been struggling with a abnormal heart rhythm and recently has been feeling lightheaded and dizzy and had a bout of syncope on Friday. He states that he typically feels lightheaded/dizzy when he stands and tries to ambulate and this seems to improve at rest. He states he has been checking his pulse at home and has been running low in the 30s to 40s and he reports he is currently on metoprolol 75 mg twice a day. He does state that today as he was feeling lightheaded and dizzy he only took 1/2 pill around 6 PM. He states based on his persistent symptoms and the fact his heart rate is running low he comes in for evaluation [facility] Medical History Atrial fibrillation with RVR BPH (benign prostatic hyperplasia) Essential hypertension History of prostate cancer Home Medications aspirin 81 mg chewable tablet 81 mg PO DAILY Anticoagulant 03/15/22 [History Last Taken 04/23/22] multivitamin 1 tab PO DAILY Health 03/15/22 [History Last Taken 03/15/22] apixaban 5 mg tablet (Eliquis) 5 mg PO BID 30 days #60 tabs 03/29/22 [Rx Last Taken 04/23/22] losartan 50 mg tablet 50 mg PO DAILY #90 tabs 03/29/22 [Rx Last Taken 04/23/22] metoprolol tartrate 50 mg tablet 75 mg PO BID 90 days #270 tabs 06/12/22 [Rx Last Taken Unknown] dutasteride 0.5 mg capsule 0.5 mg PO DAILY 06/13/22 [History Last Taken Unknown] Allergy/AdvReac Type Severity Reaction Status Date / Time atorvastatin [From Lipitor] AdvReac Other Verified 06/13/22 21:40 Family History Father Unknown family medical history Mother Diabetes Surgical History History of cardioversion (~04/23/22) Social History household members: spouse Smoking Status: Never smoker alcohol intake: never substance use type: does not use ROS ROS ED Constitutional Constitutional ED: Denies chills or fever(s) Eyes Eyes: Denies change in vision ENT ENT ED: Denies sore throat Cardiovascular Cardiovascular: Reports palpitations; Denies chest pain Respiratory/Chest Respiratory/Chest: Denies cough or dyspnea Gastrointestinal Gastrointestinal: Denies abdominal pain, diarrhea, nausea or vomiting Genitourinary Genitourinary ED: Denies dysuria Musculoskeletal Musculoskeletal: Denies myalgias Integumentary Denies rash Neurologic Neurologic: Reports other Details: Positive dizziness and syncope ; Denies headache(s) Hematologic/Lymphatic Hematologic/Lymphatic: Reports easy bleeding and easy bruising EXAM Physical Exam Const Vital Signs: 06/13/22 21:36 06/13/22 21:48 06/13/22 22:21 Temperature 97.8 F Temperature Source Temporal Pulse Rate 34 L Pulse Rate [Lying] 42 L Pulse Rate [Sitting (for 1 minute prior to obtaining)] 41 L Pulse Rate [Standing (for 1 minute prior to obtaining)] 41 L Respiratory Rate 15 Respiratory Pattern Normal Blood Pressure 115/63 Blood Pressure [Lying] 150/54 H Blood Pressure [Sitting (for 1 minute prior to obtaining)] 166/63 H Blood Pressure [Standing (for 1 minute prior to obtaining)] 165/60 H Blood Pressure Mean 80 Blood Pressure Mean [Lying] 86 Blood Pressure Mean [Sitting (for 1 minute prior to obtaining)] 97 Blood Pressure Mean [Standing (for 1 minute prior to obtaining)] 95 Pulse Ox Oxygen Delivery Method Room Air 06/13/22 23:08 06/13/22 23:28 Temperature Temperature Source Pulse Rate 42 L 46 L Pulse Rate [Lying] Pulse Rate [Sitting (for 1 minute prior to obtaining)] Pulse Rate [Standing (for 1 minute prior to obtaining)] Respiratory Rate 20 H 18 Respiratory Pattern Blood Pressure 167/67 H 149/61 H Blood Pressure [Lying] Blood Pressure [Sitting (for 1 minute prior to obtaining)] Blood Pressure [Standing (for 1 minute prior to obtaining)] Blood Pressure Mean 100 90 Blood Pressure Mean [Lying] Blood Pressure Mean [Sitting (for 1 minute prior to obtaining)] Blood Pressure Mean [Standing (for 1 minute prior to obtaining)] Pulse Ox 97 96 Oxygen Delivery Method Room Air Room Air Positive well nourished and well developed General Appearance ED: well developed HEENT Reports moist mucous membranes Eyes PERRL and EOMs intact bilaterally Neck supple and no JVD Chest Wall palpation of chest normal Resp normal respiratory effort and clear to auscultation bilaterally Cardio regular rhythm Rate: bradycardia and other Other Details: Bradycardic rate with regular rhythm and occasional ectopic beat noted. Radial pulses are plus 2 out of 4 bilaterally they are equal and symmetric GI normal to inspection, nondistended, normoactive bowel sounds, non-tender and non-distended GI Narrative: No voluntary guarding or rigidity no pulsatile mass or fluid wave Auscultation: normoactive bowel sounds Palpation: soft Back/Spine Back/Spine Narrative: No bony deformity or step-off of the cervical thoracic or lumbar spine no midline pain on palpation Extremity normal to inspection Extremity Narrative: Pelvis is stable there is no shortening or external rotation of either lower extremity Neuro oriented x3, CN's II-XII intact bilaterally and no sensory deficits noted Neuro Narrative: Cranial nerves II through XII are grossly intact there are no focal neurologic deficits. No pronator drift no dysmetria no truncal ataxia. NIH stroke scale score of 0 Sensorium / Orientation: alert Psych mental status grossly normal Skin no rashes or lesions noted MDM MDM MDM Narrative Medical decision making narrative: Patient presented to the ER bradycardic but otherwise hemodynamically stable. He was in sinus rhythm at this rate despite his history of paroxysmal atrial fibrillation. The patient does take 75 mg metoprolol twice a day which could very well be a cause of his symptoms. In order to ensure that there was no underlying severe anemia or electrolyte disturbance or possible head injury with the cause of his dizziness and syncope I did elect to perform basic laboratory studies and a head CT. Head CT revealed no acute intracranial finding and labs revealed elevation to his TSH indicating hypothyroidism but otherwise no clinically significant values. Patient was given atropine and did have his heart rate improved to approximately 50 bpm for short while however then he would revert back to a value of approximately 40. Based on the patient's persistent bradycardia and the symptoms associated with this I did discuss the case with cardiology on-call. They recommend patient be kept in the hospital for beginning treatment of his hypothyroidism and adjusting his metoprolol in order to ensure that he has improvement of his heart rate with this. The plan of care was discussed with the patient he is agreeable to it and therefore be admitted at this time Lab Data Attestation: I reviewed the patient's lab results. Labs: Laboratory Results - last 24 hr 06/13/22 06/13/22 22:15 22:15 WBC 10.5 RBC 4.67 Hgb 13.2 Hct 40.1 MCV 85.9 MCH 28.3 MCHC 32.9 RDW Std Deviation 43.5 RDW Coeff of Dc 14.0 Plt Count 287 MPV 10.5 Immature Gran % (Auto) 0.600 Neut % (Auto) 62.2 Lymph % (Auto) 23.4 [place] % (Auto) 9.6 Eos % (Auto) 3.2 Baso % (Auto) 1.0 Absolute Neuts (auto) 6.5 Absolute Lymphs (auto) 2.45 Nucleated RBC % 0 Sodium 138 Potassium 3.5 Chloride 99 Carbon Dioxide 32.0 Anion Gap 7 BUN 19 H Creatinine 1.12 Estim Creat Clear Calc 45.90 Est GFR (MDRD) Af Amer 80 Est GFR (MDRD) Non-Af 66 BUN/Creatinine Ratio 17.0 Glucose 123 H Calcium 9.5 Magnesium 2.2 TSH 11.10 H Radiography Diagnostic Testing: Clinical Impression(s) from Imaging Studies Brain CT 06/13/22 22:15 IMPRESSION: No acute abnormal intracranial finding. Electronically Signed: Anibal Bruno MD at 23:08 EDT , Discharge Plan Dx/Rx/DC Orders Clinical Impression: Symptomatic bradycardia, Essential hypertension, Atrial fibrillation and flutter, Current use of supervisor intermediates anticoagulation Disposition Disposition: Acute Care Hospital [facility] Discharge Date/Time: 06/14/22 00:57
[2022-06-14] MEDS: Potassium Chloride Oral Tablet 20 MEQ 40 MEQ PO (01:29)
[2022-06-14 05:54] LABS: Absolute Lymphocyte Count 1.77 X10^3/uL (0.83-4.51); Basophil# 0.07 X10^3/uL; Basophil% 0.7 % (0-1); Eosinophil# 0.06 X10^3/uL; Eosinophils% 0.6 % (0-5); Hematocrit 37.1 % (40-54); Hemoglobin 12.4 g/dL (13.0-16.5); Lymphocyte # 1.77 X10^3/ul (0.83-4.51); Lymphocyte % 18.1 % (19-41); Mean Corp Hgb Conc 33.4 g/dL (32-36); Mean Corpuscular Hgb 27.9 pg (27.0-32.0); Mean Corpuscular Volume 83.4 fL (80-94); Mean Platelet Vol. 9.8 fl (6.2-12.0); Monocyte% 8.2 % (0-10); NRBC Flagged by Analyzer 0 % (0-5); Neutrophil # 7.02 X10^3/uL (2.7-7.7); Neutrophil % 71.7 % (47-70); Platelet Count 266 K/mm3 (150-450); RBC Distribution Width CV 14.1 % (11.6-14.6); RBC Distribution Width SD 42.8 fl (35.1-43.9); Red Blood Count 4.45 M/mm3 (4.6-6.2); White Blood Count 9.8 K/mm3 (4.4-11.0)
[2022-06-14 06:42] LABS: Anion Gap 11 (5-15); BUN 19 mg/dL (7-18); BUN/Creat Ratio 17.4 RATIO (10-20); Calcium,Total 9.4 mg/dL (8.5-10.1); Chloride 98 mmol/L (98-107); Creatinine, Serum 1.09 mg/dL (0.70-1.30); EST Glomerular Filtration Rate 68 mL/min (>60); Est Glom Filt Rate - Afr Amer 83 mL/min (>60); Estimated Creatinine Clearance 47.17 ml/min; Free T3 2.7 pg/mL (2.18-3.98); Glucose 134 mg/dL (74-106); Potassium 3.8 mmol/L (3.5-5.1); Sodium Level 137 mmol/L (136-145); T4 Free Direct 1.23 ng/dL (0.76-1.46)
[2022-06-14 08:19] LABS: Vitamin B12 424 pg/mL (211-911); Vitamin D,25 Hydroxy 30.9 ng/mL
[2022-06-14] MEDS: Losartan Potassium 50 MG Tablet PO (08:30)
[2022-06-14] MEDS: Aspirin 81 MG TAB.CHEW PO (08:30)
[2022-06-14] MEDS: Finasteride 5 MG Tablet PO (08:30)
[2022-06-14] MEDS: APIXABAN 5 MG TABLET PO ×2 (08:30→21:52)
[2022-06-14] MEDS: Multivitamins,Therapeutic Tablet 1 TABLET PO (08:30)
--- NOTE | 2022-06-14 13:36 | CASEMGMT ---
Call to pt's , Aziza, and she states no concerns with pt coming home at discharge. Pt has been up in room independently. Per , pt has had increased confusion 'recently' and she states his physicians have been switching 'lots of meds around.' voices no further questions/concerns/needs. Dr. Arnold and Ree BISHOP updated, voice understanding. Rose BISHOP CM
--- NOTE | 2022-06-14 15:06 | CON.PCM.CA_ITS ---
Assessment & Plan Assessment/Plan (1) Symptomatic bradycardia: PLAN: Heart rate improved with holding of metoprolol last night. Decrease dose to 12.5 mg twice daily. Discussed with patient. With his chronic systolic congestive heart failure, he will need beta-rylie therapy. He should be considered for a pacemaker/defibrillator as an outpatient. I recommended to the patient that we are going to restart him on low-dose metoprolol and see how his heart rate does. However he does not wish to stay in the hospital tonight under any circumstance. Aware of the risks. Give a dose of 12.5 mg metoprolol now. If in 4 to 5 hours, his heart rate was still good, he may be discharged home. Follow-up as outpatient within a week. (2) Chronic systolic (congestive) heart failure: PLAN: Continue losartan. See #1 above. (3) Atrial fibrillation and flutter: PLAN: Presently normal sinus rhythm. (4) Essential hypertension: PLAN: Controlled. (5) Elevated TSH: PLAN: As per internal medicine. HPI Consult Data Date of Consult: 06/14/22 HPI Narrative Reason for Consultation: Symptomatic bradycardia HPI Narrative: OLIVA PEREIRA, is a 86 M who presented to the emergency room complaining of feeling lightheaded and dizzy. According to him, this has been happening over the last 2 to 3 weeks. No syncope. No falls. Denies any chest pains either at rest or with exertion. No shortness of breath. Patient's EKG in the emergency room showed marked sinus bradycardia. Patient recently had an echocardiogram done which showed ejection fraction of 30%. He also has history of atrial fibrillation/flutter. Denies any orthopnea. No paroxysmal nocturnal dyspnea. [facility] Medical History Atrial fibrillation with RVR BPH (benign prostatic hyperplasia) Essential hypertension History of prostate cancer Home Medications aspirin 81 mg chewable tablet 81 mg PO DAILY Anticoagulant 03/15/22 [History Last Taken 04/23/22] multivitamin 1 tab PO DAILY Health 03/15/22 [History Last Taken 03/15/22] apixaban 5 mg tablet (Eliquis) 5 mg PO BID 30 days #60 tabs 03/29/22 [Rx Last Taken 04/23/22] losartan 50 mg tablet 50 mg PO DAILY #90 tabs 03/29/22 [Rx Last Taken 04/23/22] metoprolol tartrate 50 mg tablet 75 mg PO BID 90 days #270 tabs 06/12/22 [Rx Last Taken Unknown] dutasteride 0.5 mg capsule 0.5 mg PO DAILY 06/13/22 [History Last Taken Unknown] Allergy/AdvReac Type Severity Reaction Status Date / Time atorvastatin [From Lipitor] AdvReac Other Verified 06/13/22 21:40 Family History Father Unknown family medical history Mother Diabetes Surgical History History of cardioversion (~04/23/22) Social History household members: spouse Smoking Status: Never smoker alcohol intake: never substance use type: does not use Physical Exam Const alert and oriented x3 HEENT hearing grossly normal bilaterally Neck no JVD and no carotid bruits Resp clear to auscultation bilaterally Cardio regular rate, regular rhythm, S1 normal heart sound, S2 normal heart sound and no murmurs GI soft to palpation Extremity no pedal edema Psych mental status grossly normal Risk Stratification Risk Stratification Applicable: No Objective Data Vital Signs: Vital Signs Temp Pulse Resp BP Pulse Ox O2 Del Method 97.5 F L 74 18 156/67 H 96 Room Air 06/14/22 10:00 06/14/22 10:00 06/14/22 10:00 06/14/22 10:00 06/14/22 10:00 06/14/22 14:15 Oxygen Delivery Method Room Air Weight: 169 lb 15.622 oz Body Mass Index (BMI) 26.6 Intake & Output: Intake and Output for Last 24 Hours 06/12/22 06/13/22 06/14/22 23:59 23:59 23:59 Intake Total 480 / 480 Balance 480 / 480 Lab / Micro Data Result Diagrams: 06/14/22 05:35 06/14/22 05:35 Labs: Laboratory Results - last 24 hr 06/13/22 22:15: WBC 10.5, RBC 4.67, Hgb 13.2, Hct 40.1, MCV 85.9, MCH 28.3, MCHC 32.9, RDW Std Deviation 43.5, RDW Coeff of Dc 14.0, Plt Count 287, MPV 10.5, Immature Gran % (Auto) 0.600, Neut % (Auto) 62.2, Lymph % (Auto) 23.4, [place] % (Auto) 9.6, Eos % (Auto) 3.2, Baso % (Auto) 1.0, Absolute Neuts (auto) 6.5, Absolute Lymphs (auto) 2.45, Nucleated RBC % 0 06/13/22 22:15: Sodium 138, Potassium 3.5, Chloride 99, Carbon Dioxide 32.0, Anion Gap 7, BUN 19 H, Creatinine 1.12, Estim Creat Clear Calc 45.90, Est GFR (MDRD) Af Amer 80, Est GFR (MDRD) Non-Af 66, BUN/Creatinine Ratio 17.0, Glucose 123 H, Calcium 9.5, Magnesium 2.2, TSH 11.10 H 06/14/22 05:35: WBC 9.8, RBC 4.45 L, Hgb 12.4 L, Hct 37.1 L, MCV 83.4, MCH 27.9, MCHC 33.4, RDW Std Deviation 42.8, RDW Coeff of Dc 14.1, Plt Count 266, MPV 9.8, Immature Gran % (Auto) 0.700, Neut % (Auto) 71.7 H, Lymph % (Auto) 18.1 L, [place] % (Auto) 8.2, Eos % (Auto) 0.6, Baso % (Auto) 0.7, Absolute Neuts (auto) 7.0, Absolute Lymphs (auto) 1.77, Nucleated RBC % 0 06/14/22 05:35: Sodium 137, Potassium 3.8, Chloride 98, Carbon Dioxide 28.0, Anion Gap 11, BUN 19 H, Creatinine 1.09, Estim Creat Clear Calc 47.17, Est GFR (MDRD) Af Amer 83, Est GFR (MDRD) Non-Af 68, BUN/Creatinine Ratio 17.4, Glucose 134 H, Calcium 9.4, Free T4 1.23, Free T3 pg/dL 2.7 06/14/22 05:35: Vitamin B12 424, Vitamin D 25-Hydroxy 30.9 Cardiology Labs/Tests 06/13/22 22:15: WBC 10.5, RBC 4.67, Hgb 13.2, Hct 40.1, MCV 85.9, MCH 28.3, MCHC 32.9, Plt Count 287, MPV 10.5, Immature Gran % (Auto) 0.600, Neut % (Auto) 62.2, Lymph % (Auto) 23.4, [place] % (Auto) 9.6, Eos % (Auto) 3.2, Baso % (Auto) 1.0, Absolute Neuts (auto) 6.5, Nucleated RBC % 0 06/13/22 22:15: Sodium 138, Potassium 3.5, Chloride 99, Carbon Dioxide 32.0, Anion Gap 7, BUN 19 H, Creatinine 1.12, Est GFR (MDRD) Af Amer 80, Est GFR (MDRD) Non-Af 66, BUN/Creatinine Ratio 17.0, Glucose 123 H, Calcium 9.5, Magnesium 2.2 06/14/22 05:35: WBC 9.8, RBC 4.45 L, Hgb 12.4 L, Hct 37.1 L, MCV 83.4, MCH 27.9, MCHC 33.4, Plt Count 266, MPV 9.8, Immature Gran % (Auto) 0.700, Neut % (Auto) 71.7 H, Lymph % (Auto) 18.1 L, [place] % (Auto) 8.2, Eos % (Auto) 0.6, Baso % (Auto) 0.7, Absolute Neuts (auto) 7.0, Nucleated RBC % 0 06/14/22 05:35: Sodium 137, Potassium 3.8, Chloride 98, Carbon Dioxide 28.0, Anion Gap 11, BUN 19 H, Creatinine 1.09, Est GFR (MDRD) Af Amer 83, Est GFR (MDRD) Non-Af 68, BUN/Creatinine Ratio 17.4, Glucose 134 H, Calcium 9.4 Rhythm: EKG: ECHO: Stress Test: Cardiac Cath: PCI: CT Surgery: Holter monitor: EPS: PPM: CXR: Chest CT Scan: Radiography Diagnostic Testing: Radiology Impression Brain CT 06/13/22 22:15 IMPRESSION: No acute abnormal intracranial finding. Electronically Signed: Anibal Bruno MD at 23:08 EDT ,
--- NOTE | 2022-06-14 15:07 | CASEMGMT ---
Patient has a Healthcare Power of Timekeeper and a Healthcare Living Will. They are not on file at [facility] and patient is aware. Jie AGUIRRE
--- NOTE | 2022-06-14 15:22 | CHAPLAIN ---
Type of Pastoral Visit _x__ Initial Visit ___ Follow-up Visit ___ On-call Visit ___ General Patient Visit ___ Spiritual Assessment ___ Family Conference ___ Bereavement ___ Rapid Response ___ Code Blue ___ Other (describe below) Pastoral Care Referral From _x__ Patient ___ Family ___ Nurse ___ Physician ___ Engineering Manager Electronics ___ Dairy Manufacturing Technologist ___ Other (describe below) Sacrament/Intervention _x__ Active listening ___ Anointing ___ Episcopalian ___ Bereavement ___ Communion ___ Soo exploration ___ _x__ Life review _x__ Prayer ___ Reconciliation ___ Sacrament of Sick ___ Supportive presence ___ Wedding ___ Other (describe below) Pastoral Comments patient is expressive about his care and states how desirous he is to get home; pt hopes for DR to visit soon and release him; pt states he has a to take care of at home; offer of presence and support; pt states that a prayer would be good; pt gives some brief life review
[2022-06-14] MEDS: Metoprolol Tartrate 25 MG Tablet 12.5 MG PO (15:31)
--- NOTE | 2022-06-14 16:16 | PCM.DC ---
Discharge Instructions Diet Discharge Diet: Low fat / Low cholesterol and 2000 mg Sodium Diet Activity Discharge Activity: Return to Normal Activity Follow Up Care Test Results: Test results from this visit will be discussed in further detail at your follow-up appointment, if applicable. Discharge Plan Admission Admit Date/Time: 06/14/22 00:04 Primary Reason for Your Visit: Bradycardia Attending Provider: Natalia Arnold Primary Care Provider: Oral Hodges Consulting Providers: Narda Sanchez ; Keon Eason Instructions Additional Instructions / Restrictions: Take note of changes to your medications Follow-up with your primary care doctor and machine setter and repairer within 1 week Discharge Orders/Prescriptions Prescriptions: New metoprolol tartrate 25 mg Tablet 12.5 mg PO BID 30 Days Qty: 30 0RF Continued Eliquis 5 mg tablet 5 mg PO BID 30 Days Qty: 60 11RF losartan 50 mg tablet 50 mg PO DAILY Qty: 90 3RF multivitamin Tablet 1 tab PO DAILY aspirin 81 mg Tablet,Chewable 81 mg PO DAILY dutasteride 0.5 mg capsule 0.5 mg PO DAILY Rx Instructions: has not started taking yet Discontinued metoprolol tartrate 50 mg tablet 75 mg PO BID 90 Days Qty: 270 3RF Referrals / Follow Up: Taisha Patterson MD [Med Staff - Active Staff] - Within 1 Week Oral Hodges MD [Primary Care Provider] - In 1 Week Disposition Disposition (needs filled in before D/C Order can be placed): Home, Self Care
--- NOTE | 2022-06-14 16:16 | PCM.DC.SUM ---
Providers Date of Admission: 06/14/22 Date of Discharge: 06/14/22 Primary Care Physician: Dr. Oral Hodges MD Consultations 06/14/22 01:08 Consult: Cardiology Routine Consulting Provider: Narda Sanchez Reason for Consult: Sinus bradycardia EMERGENT Consult: No MD Notified: Yes Date Notified: 06/14/22 Time Notified: 00:10 Method of Notification: ED Physician Initiated Method of Consult:: In-Person Reason For Visit: SINUS BRADYCARDIA Diagnosis Discharge Diagnosis (1) Symptomatic bradycardia: Status: Acute Code(s): R00.1 - Bradycardia, unspecified (2) Chronic systolic (congestive) heart failure: Status: Chronic Code(s): I50.22 - Chronic systolic (congestive) heart failure (3) Atrial fibrillation and flutter: Status: Acute Code(s): I48.91 - Unspecified atrial fibrillation; I48.92 - Unspecified atrial flutter (4) Essential hypertension: Status: Chronic Code(s): I10 - Essential (primary) hypertension (5) Elevated TSH: Status: Acute Code(s): R79.89 - Other specified abnormal findings of blood chemistry Medications at Discharge Home Medications aspirin 81 mg chewable tablet 81 mg PO DAILY Anticoagulant 03/15/22 multivitamin 1 tab PO DAILY Health 03/15/22 apixaban 5 mg tablet (Eliquis) 5 mg PO BID 30 days #60 tabs 03/29/22 losartan 50 mg tablet 50 mg PO DAILY #90 tabs 03/29/22 dutasteride 0.5 mg capsule 0.5 mg PO DAILY 06/13/22 metoprolol tartrate 25 mg tablet 12.5 mg PO BID 30 days #30 tabs 06/14/22 Hospital Course Operations None Procedures None Summary of Care Provided Minutes Spent on Discharge: 35 Hospital Course: 86-year-old male with past medical history of atrial fibrillation, status post cardioversion, on metoprolol 75 mg twice daily, apixaban who comes in with bradycardia. Patient had complained of not feeling well. He checked his pulse. It was 45. It kept dropping the entire day with the lowest pulse of 33. He took 25 mg of his scheduled metoprolol instead of his prescribed 75 mg at night before. He admitted to having lightheadedness and unsteady gait ongoing for about a couple of months. 2 days prior to admission, he had been using a cane. Patient was seen in the emergency room. He was found to be severely bradycardic. His magnesium was normal. This was presumed secondary to his beta-blockers. His TSH was elevated but his free T4 and free T3 were normal. Patient was monitored in the progressive care unit of his metoprolol. His heart rate improved. Cardiology was consulted. Recommended restarting him back on metoprolol 12.5 mg twice daily. Patient's heart rate continued to be stable. He will follow-up in the outpatient with his primary care doctor within a week and also with cardiology Physical Exam Narrative Physical exam: General: Alert, Oriented x3, Cooperative, No apparent distress HEENT: Atraumatic Oral: Moist Mucosa Neck: Supple Lungs: Clear to auscultation Cardiovascular: HS I+II, regular, no murmurs Abdomen: Bowel Sounds Present, Soft, Non Tender Extremities: No edema Skin: No rashes, No breakdown Neurological: Grossly intact Psych/Mental Status: Appropriate Weight / BMI Weight Weight: 77.1 kg Body Mass Index (BMI) 26.6 ABG / Lab / Microbiology Data Result Diagrams: 06/14/22 05:35 06/14/22 05:35 Laboratory: Laboratory Results - last 24 hr 06/13/22 22:15: WBC 10.5, RBC 4.67, Hgb 13.2, Hct 40.1, MCV 85.9, MCH 28.3, MCHC 32.9, RDW Std Deviation 43.5, RDW Coeff of Dc 14.0, Plt Count 287, MPV 10.5, Immature Gran % (Auto) 0.600, Neut % (Auto) 62.2, Lymph % (Auto) 23.4, [place] % (Auto) 9.6, Eos % (Auto) 3.2, Baso % (Auto) 1.0, Absolute Neuts (auto) 6.5, Absolute Lymphs (auto) 2.45, Nucleated RBC % 0 06/13/22 22:15: Sodium 138, Potassium 3.5, Chloride 99, Carbon Dioxide 32.0, Anion Gap 7, BUN 19 H, Creatinine 1.12, Estim Creat Clear Calc 45.90, Est GFR (MDRD) Af Amer 80, Est GFR (MDRD) Non-Af 66, BUN/Creatinine Ratio 17.0, Glucose 123 H, Calcium 9.5, Magnesium 2.2, TSH 11.10 H 06/14/22 05:35: WBC 9.8, RBC 4.45 L, Hgb 12.4 L, Hct 37.1 L, MCV 83.4, MCH 27.9, MCHC 33.4, RDW Std Deviation 42.8, RDW Coeff of Dc 14.1, Plt Count 266, MPV 9.8, Immature Gran % (Auto) 0.700, Neut % (Auto) 71.7 H, Lymph % (Auto) 18.1 L, [place] % (Auto) 8.2, Eos % (Auto) 0.6, Baso % (Auto) 0.7, Absolute Neuts (auto) 7.0, Absolute Lymphs (auto) 1.77, Nucleated RBC % 0 06/14/22 05:35: Sodium 137, Potassium 3.8, Chloride 98, Carbon Dioxide 28.0, Anion Gap 11, BUN 19 H, Creatinine 1.09, Estim Creat Clear Calc 47.17, Est GFR (MDRD) Af Amer 83, Est GFR (MDRD) Non-Af 68, BUN/Creatinine Ratio 17.4, Glucose 134 H, Calcium 9.4, Free T4 1.23, Free T3 pg/dL 2.7 06/14/22 05:35: Vitamin B12 424, Vitamin D 25-Hydroxy 30.9 Radiography Diagnostic Testing: Radiology Impression Brain CT 06/13/22 22:15 IMPRESSION: No acute abnormal intracranial finding. Electronically Signed: Anibal Bruno MD at 23:08 EDT , D/C Instructions Discharge Diet: Low fat / Low cholesterol and 2000 mg Sodium Diet Meaningful Use Info Meaningful Use Diagnoses (Choose all that apply): None applicable Discharge Plan Admission Admit Date/Time: 06/14/22 00:04 Primary Reason for Your Visit: Bradycardia Attending Provider: Natalia Arnold Primary Care Provider: Oral Hodges Consulting Providers: Narda Sanchez ; Keon Eason Instructions Additional Instructions / Restrictions: Take note of changes to your medications Follow-up with your primary care doctor and hole digger operator within 1 week Discharge Orders/Prescriptions Prescriptions: New metoprolol tartrate 25 mg Tablet 12.5 mg PO BID 30 Days Qty: 30 0RF Continued Eliquis 5 mg tablet 5 mg PO BID 30 Days Qty: 60 11RF losartan 50 mg tablet 50 mg PO DAILY Qty: 90 3RF multivitamin Tablet 1 tab PO DAILY aspirin 81 mg Tablet,Chewable 81 mg PO DAILY dutasteride 0.5 mg capsule 0.5 mg PO DAILY Rx Instructions: has not started taking yet Discontinued metoprolol tartrate 50 mg tablet 75 mg PO BID 90 Days Qty: 270 3RF Referrals / Follow Up: Taisha Patterson MD [Med Staff - Active Staff] - Within 1 Week Oral Hodges MD [Primary Care Provider] - In 1 Week Disposition Disposition (needs filled in before D/C Order can be placed): Home, Self Care Charges/Coding Visit Charges OBSV E&M: 87748 Observation care discharge
--- NOTE | 2022-06-14 20:57 | NURSING ---
pt had a can of tobacco in his hand, this rn took and locked it in his med drawer. Educated pt about not able to use this product here. Will pass along next shift.
[2022-06-14] MEDS: 0.9% Saline Lock 10 ML Syringe IV (21:53)
[2022-06-14] MEDS: hydrALAZINE 20 MG/ML Vial 5 MG IV (22:32)
[2022-06-15] VITALS (10 sets, daily range): BP systolic 153–176; BP diastolic 83–98; PULSE 67–89; RESP 18; TEMP 36.5–36.8; O2SAT 94–95
[2022-06-15] MEDS: hydrALAZINE 20 MG/ML Vial 10 MG IV ×2 (01:45→09:06)
[2022-06-15] MEDS: 0.9% Saline Lock 10 ML Syringe IV ×2 (01:46→09:09)
--- NOTE | 2022-06-15 05:34 | NURSING ---
pt keeps trying to get out of bed on his own, wouldn't agree to call for help before getting up. Pt has had dizziness w/ activity and unsteady when up and walking. Educated with safety and fall precautions,pt noncompliant. Aid in the room sitting, pt up in the chair talking to the aid.
--- NOTE | 2022-06-15 07:30 | PCM.PN.HOSP ---
Objective Data Objective Data Vital Signs: Vital Signs Temp Pulse Resp BP Pulse Ox O2 Del Method 98.2 F 67 18 156/98 H 95 Room Air 06/15/22 03:54 06/15/22 03:54 06/15/22 03:54 06/15/22 03:54 06/15/22 03:54 06/15/22 03:54 Oxygen Delivery Method Room Air Weight: 77.1 kg Body Mass Index (BMI) 26.6 Intake & Output: Intake and Output for Last 24 Hours 06/13/22 06/14/22 06/15/22 23:59 23:59 23:59 Intake Total 960 / 960 Output Total 450 / 450 900 / 900 Balance 510 / 510 -900 / -900 Lab / Micro Data Result Diagrams: 06/14/22 05:35 06/14/22 05:35 Labs: Laboratory Results - last 24 hr 06/14/22 05:35: Vitamin B12 424, Vitamin D 25-Hydroxy 30.9
--- NOTE | 2022-06-15 07:45 | EKG12_ITS ---
Test Reason : STAT Blood Pressure : / mmHG Vent. Rate : 114 BPM Atrial Rate : 122 BPM P-R Int : 108 ms QRS Dur : 130 ms QT Int : 374 ms P-R-T Axes : 000 -17 110 degrees QTc Int : 515 ms Atrial fibrillation Left ventricular hypertrophy with QRS widening ( Sokolow-Ho , [place] product ) Nonspecific T wave abnormality Abnormal ECG No previous ECGs available Confirmed by ZOE CORTEZ, ANTONIO ([id number]), assistant film editor NAJMA MARTINEZ ([id number]) on 06/18/2022 12:46:42 PM Referred By: BENNETT Confirmed By:ANTONIO ENRIQUEZ MD
[2022-06-15] MEDS: Aspirin 81 MG TAB.CHEW PO (09:05)
[2022-06-15] MEDS: Multivitamins,Therapeutic Tablet 1 TABLET PO (09:05)
[2022-06-15] MEDS: Losartan Potassium 50 MG Tablet PO (09:05)
[2022-06-15] MEDS: APIXABAN 5 MG TABLET PO (09:06)
[2022-06-15] MEDS: Finasteride 5 MG Tablet PO (09:06)
--- NOTE | 2022-06-15 10:31 | CASEMGMT ---
Spoke with hospitalist, pt has given an ultimatum that he will be dc'd this morning. DC is entered from yesterday. States the plan is for pt to dc today.
== END 2022-06-15 10:41 | disposition home or self-care (01) ==
LOC: ED 06-14 00:42 → PCU 06-14 00:45
PROVIDERS: Admitting Provider Hospitalist; Emergency Provider Emergency Medicine; PCP Family Medicine; Visit Provider Internal Medicine
DX: R00.1 Bradycardia, unspecified (principal); I11.0 Hypertensive heart disease with heart failure; I50.22 Chronic systolic (congestive) heart failure; I48.92 Unspecified atrial flutter; I48.0 Paroxysmal atrial fibrillation; E03.9 Hypothyroidism, unspecified; R42 Dizziness and giddiness; Z79.01 Long term (current) use of anticoagulants; R26.81 Unsteadiness on feet; Z79.82 Long term (current) use of aspirin; Z79.899 Other long term (current) drug therapy; N40.0 Benign prostatic hyperplasia without lower urinary tract symptoms
CPT/HCPCS: 36415; 70450; 80048; 82306; 82607; 83735; 84439; 84443; 84481; 85025; 93005; 96374; 96375; 96376; 97162; 99218; 99284; 99406; A4216; G0378

== ENCOUNTER 2022-07-05 14:55 | Emergency (ER) | payer MEDICARE, SELFPAY ==
[2022-07-05] VITALS (7 sets, daily range): BP systolic 91–151; BP diastolic 68–85; PULSE 102–149; RESP 14–20; TEMP 36.6–36.7; O2SAT 94–98; BMI 25.5
--- NOTE | 2022-07-05 15:09 | EKG12_ITS ---
Test Reason : TACHY Blood Pressure : / mmHG Vent. Rate : 148 BPM Atrial Rate : 000 BPM P-R Int : 000 ms QRS Dur : 124 ms QT Int : 346 ms P-R-T Axes : 000 -25 090 degrees QTc Int : 543 ms Cardiac Rhythm: Consider Atrial Flutter with premature ventricular complexes or fusion complexes Non-specific intra-ventricular conduction delay Minimal voltage criteria for LVH, may be normal variant ( [place] product ) Nonspecific ST and T wave abnormality Abnormal ECG Confirmed by CHAU CORTEZ, ADIA ([id number]), sports editor NAJMA MARTINEZ ([id number]) on 07/09/2022 1:32:53 PM Referred By: BB Confirmed By:ADIA RITCHIE MD
--- NOTE | 2022-07-05 15:10 | EDS_ITS ---
HPI HPI - GI History of Present Illness Chief Complaint: GI Bleed Informant: patient Abdominal Pain/Flank Pain Onset: Yesterday Timing: Intermittent Quality: - (tinkle) Location: - (periumbilical) Current Severity: Gone Maximum Severity: Mild Worsened by: Nothing Relieved by: Nothing Nausea/Vomiting/Emesis GI Symptom: Positive for Nausea and Vomiting Onset: Today Quality: Positive for Coffee ground Episodes: 1 Diarrhea/Melena/Hematochezia GI Symptom: Positive for Melena; Negative for Hematochezia Onset: Yesterday Stool Quality: Positive for Black; Negative for Maroon or BRB per rectum Severity: Moderate Associated Symptoms Associated Symptoms: Negative for Dysuria, Frequency, Hematuria or Urgency Narrative Narrative: 86-year-old started having melena yesterday, some mild intermittent abdominal discomfort that is not present right now, generalized weakness, some lightheadedness without near syncope, and when he got here, coffee-ground emesis once. He is on a apixaban for history of A. fib. He denies any new dyspnea or angina with any of this. He has a history of a hiatal hernia but he is not on any medication for that. Last took his Eliquis this morning. [facility] Medical History Atrial fibrillation with RVR BPH (benign prostatic hyperplasia) Essential hypertension History of prostate cancer Home Medications aspirin 81 mg chewable tablet 81 mg PO DAILY Anticoagulant 03/15/22 [History Last Taken 04/23/22] multivitamin 1 tab PO DAILY supplement 03/15/22 [History Last Taken 03/15/22] apixaban 5 mg tablet (Eliquis) 5 mg PO BID 30 days #60 tabs 03/29/22 [Rx Last Taken 04/23/22] losartan 50 mg tablet 50 mg PO DAILY #90 tabs 03/29/22 [Rx Last Taken 04/23/22] dutasteride 0.5 mg capsule 0.5 mg PO DAILY prostate 06/13/22 [History Last Taken Unknown] furosemide 40 mg tablet 40 mg PO DAILY PRN edema 07/02/22 [History Last Taken Unknown] metoprolol tartrate 25 mg tablet 25 mg PO BID 07/02/22 [History Last Taken Unknown] Allergy/AdvReac Type Severity Reaction Status Date / Time atorvastatin [From Lipitor] AdvReac Other Verified 07/02/22 09:34 Family History Father Unknown family medical history Mother Diabetes Surgical History History of cardioversion (~04/23/22) Social History household members: spouse Smoking Status: Never smoker alcohol intake: never substance use type: does not use ROS ROS ED Constitutional Constitutional ED: Reports malaise and weakness; Denies chills or fever(s) Eyes Eyes: Denies change in vision or diplopia ENT ENT ED: Denies rhinorrhea or sore throat Cardiovascular Cardiovascular: Reports lightheadedness, palpitations and other Details: In and out of rapid A. fib ; Denies chest pain Respiratory/Chest Respiratory/Chest: Denies cough or dyspnea Gastrointestinal Gastrointestinal: Reports abdominal pain, coffee ground emesis, melena, nausea and vomiting; Denies diarrhea or hematochezia Genitourinary Genitourinary ED: Denies dysuria or hematuria Musculoskeletal Musculoskeletal: Denies back pain or neck pain Integumentary Denies abscess or rash Neurologic Neurologic: Denies headache(s), paresthesias or weakness Psychiatric Psychiatric: Denies anxiety or suicidal thoughts EXAM Physical Exam Const Vital Signs: 07/05/22 14:57 07/05/22 16:12 Temperature 98.1 F Temperature Source Temporal Pulse Rate 149 H 144 H Respiratory Rate 14 14 Blood Pressure 91/70 107/71 Blood Pressure Mean 77 83 Pulse Ox 96 94 Oxygen Delivery Method Room Air Room Air Positive well nourished and well developed General Appearance ED: well developed and NAD HEENT Reports moist mucous membranes normocephalic and atraumatic Eyes PERRL and EOMs intact bilaterally Neck full ROM and supple Resp normal respiratory effort and clear to auscultation bilaterally Cardio regular rate, regular rhythm and no murmurs Rate: tachycardic GI non-tender and non-distended Auscultation: hyperactive bowel sounds Palpation: soft Back/Spine no CVA tenderness General Back: other FROM Extremity normal to inspection General Extremety ED: Negative for edema, pulses abnormal or tenderness General Extremity: Negative for edema or pulses abnormal Neuro oriented x3, CN's II-XII intact bilaterally and no sensory deficits noted Neuro Narrative: Keenly alert, conversive in full sentences without any distress sitting up in bed Sensorium / Orientation: awake and alert Motor Exam: strength 5/5 throughout Skin no rashes or lesions noted and no wounds MDM MDM MDM Narrative Medical decision making narrative: Concerned patient is having active upper GI bleeding. His blood pressure is a little on the low side and he is tachycardic, but he is clinically stable. Opened up a fluid bolus on him and ordered IV Protonix 80 mg followed by a drip. We skipped the rectal exam since he did not have pain, and he needed to have a bowel movement right as we were about to do it, it was straight dark blood clots. No further bleeding. 1 view chest x-ray negative on my interpretation for any free air, infiltrates, or other acute pathology. GI is not available today Friday or throughout the weekend. Discussed with surgery, they are not comfortable keeping this case here although they do perform EGDs, they are not able to intervene if there is active bleeding and therefore recommend transfer. I discussed this with the patient, he prefers going to [place]. Discussed first with [facility] but they do not have the capacity at this time to accept him as a patient. Patient would rather stay with an [facility] discussed with summa Dr. Duong who accepts the patient to telemetry floor. Lab Data Attestation: I reviewed the patient's lab results. Labs: Laboratory Results - last 24 hr 07/05/22 07/05/22 07/05/22 14:45 14:45 16:00 WBC 10.4 RBC 4.07 L Hgb 11.4 L Hct 35.8 L MCV 88.0 MCH 28.0 MCHC 31.8 L RDW Std Deviation 52.8 H RDW Coeff of Dc 16.6 H Plt Count 281 MPV 10.7 Immature Gran % (Auto) 0.500 Neut % (Auto) 64.3 Lymph % (Auto) 24.6 [place] % (Auto) 8.4 Eos % (Auto) 1.6 Baso % (Auto) 0.6 Absolute Neuts (auto) 6.7 Absolute Lymphs (auto) 2.55 Nucleated RBC % 0 Sodium 140 Potassium 3.3 L Chloride 100 Carbon Dioxide 32.0 Anion Gap 8 BUN 35 H Creatinine 0.98 Estim Creat Clear Calc 52.46 Est GFR (MDRD) Af Amer 93 Est GFR (MDRD) Non-Af 77 BUN/Creatinine Ratio 35.6 H Glucose 121 H Calcium 8.8 Blood Type O POSITIVE Antibody Screen NEGATIVE Radiography Diagnostic Testing: Clinical Impression(s) from Imaging Studies Chest X-Ray 07/05/22 16:11 IMPRESSION: 1. No free air beneath the diaphragms to suggest pneumoperitoneum. 2. Small bilateral pleural effusions without acute pulmonary disease. 3. Stable borderline cardiomegaly. Electronically Signed: Yomi Mtz DO at 16:39 EDT Reading Location ID and State: [address] [place] [address] Tel [phone], Service support , Rhythm Strip Rhythm Strip: A-fib Rate: 150 Ectopy: PVC(s) EKG Initial EKG: Attestation: I personally reviewed and interpreted this EKG as follows: Interpretation: No Acute Injury Pattern and Atrial Fibrillation (vs aflutter, rate 150) Prior EKG tracings: available for review Prior: Unchanged (w/r/t axis, morphology, QRS interval) Discharge Plan Triage Chief Complaint: GI Bleed ED Provider: Po Higgins Dx/Rx/DC Orders Clinical Impression: Acute upper gastrointestinal bleeding, Anticoagulated, Atrial fibrillation with RVR, ABLA (acute blood loss anemia) Prescriptions: No Action Eliquis 5 mg tablet 5 mg PO BID 30 Days Qty: 60 11RF losartan 50 mg tablet 50 mg PO DAILY Qty: 90 3RF furosemide 40 mg tablet 40 mg PO DAILY PRN (Reason: edema) metoprolol tartrate 25 mg tablet 25 mg PO BID Label Comments: take 1 tablet by mouth twice a day multivitamin Tablet 1 tab PO DAILY aspirin 81 mg Tablet,Chewable 81 mg PO DAILY dutasteride 0.5 mg capsule 0.5 mg PO DAILY Rx Instructions: has not started taking yet Primary Care Provider: Oral Hodges Referrals: Oral Hodges MD [Primary Care Provider] - Disposition Disposition: Acute Care Hospital Discharge Location: [facility]
[2022-07-05 15:42] LABS: Absolute Lymphocyte Count 2.55 X10^3/uL (0.83-4.51); Absolute Neutrophil Count 6.7 X10^3/uL (2.0-7.7); Basophil# 0.06 X10^3/uL; Basophil% 0.6 % (0-1); Eosinophil# 0.17 X10^3/uL; Eosinophils% 1.6 % (0-5); Hematocrit 35.8 % (40-54); Hemoglobin 11.4 g/dL (13.0-16.5); Lymphocyte # 2.55 X10^3/ul (0.83-4.51); Lymphocyte % 24.6 % (19-41); Mean Corp Hgb Conc 31.8 g/dL (32-36); Mean Platelet Vol. 10.7 fl (6.2-12.0); Monocyte# 0.87 X10^3/uL; Monocyte% 8.4 % (0-10); NRBC Flagged by Analyzer 0 % (0-5); Neutrophil # 6.66 X10^3/uL (2.7-7.7); Neutrophil % 64.3 % (47-70); Platelet Count 281 K/mm3 (150-450); RBC Distribution Width CV 16.6 % (11.6-14.6); RBC Distribution Width SD 52.8 fl (35.1-43.9); Red Blood Count 4.07 M/mm3 (4.6-6.2); White Blood Count 10.4 K/mm3 (4.4-11.0)
[2022-07-05 15:56] LABS: Anion Gap 8 (5-15); BUN 35 mg/dL (7-18); BUN/Creat Ratio 35.6 RATIO (10-20); Calcium,Total 8.8 mg/dL (8.5-10.1); Chloride 100 mmol/L (98-107); Creatinine, Serum 0.98 mg/dL (0.70-1.30); EST Glomerular Filtration Rate 77 mL/min (>60); Est Glom Filt Rate - Afr Amer 93 mL/min (>60); Estimated Creatinine Clearance 52.46 ml/min; Glucose 121 mg/dL (74-106); Potassium 3.3 mmol/L (3.5-5.1); Sodium Level 140 mmol/L (136-145)
--- NOTE | 2022-07-05 16:11 | RAD_ITS ---
STUDY: X-RAY CHEST REASON FOR EXAM: Male, 86 years old. I bleed. Passing clots per rectum. Abdominal pain. Rule out pneumoperitoneum. TECHNIQUE: Single AP portable view of the chest. COMPARISON: 03/24/2022. FINDINGS: The lungs are clear and expanded. Small bilateral pleural effusions previously noted. There is borderline cardiomegaly. Normal mediastinum and ochoa. Normal visualized pulmonary arteries. Normal visualized aortic arch and descending thoracic aorta. No osseous changes. There is no demonstrated abnormality of the visualized soft tissue structures of the upper abdomen. No evidence of free air beneath the diaphragms. RAD/Chest 1 View (Portable) IMPRESSION: 1. No free air beneath the diaphragms to suggest pneumoperitoneum. 2. Small bilateral pleural effusions without acute pulmonary disease. 3. Stable borderline cardiomegaly. Electronically Signed: Yomi Mtz DO at 16:39 EDT ,
--- NOTE | 2022-07-05 18:41 | NURSING ---
transport called at 1841 eta 2-3 hrs
--- NOTE | 2022-07-05 19:21 | CM.ED ---
MICHELLE met with patient and provided him and his family with directions to [facility]. No further SW needs at this time. SW remains available if needs arise. Latanya FREEDMAN
== END 2022-07-06 00:08 | disposition short-term general hospital (02) ==
PROVIDERS: Emergency Provider Emergency Medicine; PCP Family Medicine; Visit Provider Emergency Medicine
DX: K92.2 Gastrointestinal hemorrhage, unspecified (principal); I48.91 Unspecified atrial fibrillation; R11.2 Nausea with vomiting, unspecified; I10 Essential (primary) hypertension; R10.9 Unspecified abdominal pain; D62 Acute posthemorrhagic anemia; Z79.01 Long term (current) use of anticoagulants
CPT/HCPCS: 71045; 80048; 85025; 86850; 86900; 86901; 93005; 96365; 96366; 96376; 99285; J3490